=== PATIENT | female | born 1940 | race Caucasian/White ===

== ENCOUNTER 2019-08-23 11:50 | Emergency (ER) | payer MEDICARE, BC, SELFPAY ==
[2019-08-23 11:51] VITALS: BP 165/71; PULSE 75; RESP 15; TEMP 36.9; O2SAT 96; BMI 38.6
[2019-08-23 12:20] VITALS: BP 164/65; PULSE 77; RESP 16; O2SAT 94
--- NOTE | 2019-08-23 13:17 | ED_ITS ---
Entered by Michelle Nicholson, acting as scribe for Piyush Lynn MD, [facility] [place], [place] Aug 23, 2019 11:50 HPI - Weakness General: Chief complaint: Weakness Stated complaint: weakness, hyperglycemia Time Seen by Provider: 08/23/19 12:33 Source: patient Limitations: no limitations History of Present Illness: HPI Narrative: 79 yo Female presents to ED with complaint of weakness. Pt states that she was out of balance. Pt's family states that Monday they noticed a change but Monday and Monday the patient acted like her tongue was really thick. Pt states that her blood pressure has been high. Pt states that she doesn't know what her blood pressure normally is. Pt states that Dr. Zhou put her on Lisinopril but she wasn't taking it because her blood pressure would get low and she would get a headache. Pt states that she is taking the Lisinopril now. Pt states that her knees were weak. Pt states that once she gets up she is out of balance. Pt and family states that her change in her speech is noticible but is much better than yesterday. MD Complaint: generalized weakness and difficulty walking Onset (ago): day(s) (Monday) Duration: improved Associated symptoms: Reports myalgias Review of Systems General: Reports: 10 or more systems reviewed and unremarkable except in HPI and below Const: Reports: fatigue Musc: Reports: muscle weakness Neuro: Reports: weakness in extremities and slurred speech PFSH ED PFSH: Statuses (acute, chronic, etc) shown below reflect problem list status as previously entered and may not be historically accurate Social History Smoking and tobacco status: never smoked Physical Exam Const: COMMON NORMALS: no apparent distress, average body habitus, oriented x3, no limitations, healthy appearing, alert and well nourished HENMT: COMMON NORMALS: normocephalic, head/scalp atraumatic, hearing grossly normal bilaterally, external ears normal, EAC's normal, TM's normal bilaterally, external nose normal, nasal mucous membranes and turbinates normal, moist oral mucous membranes, oropharynx normal, dentition normal and gingiva normal HEAD & SCALP: normocephalic and atraumatic NOSE: external nose normal and nasal mucous membranes and turbinates normal EXTERNAL EAR: Yes external ears normal EXTERNAL AUDITORY CANAL: EAC's normal TYMPANIC MEMBRANE: TM's normal bilaterally Eye: COMMON NORMALS: PERRL, EOMs intact bilaterally, conjunctivae normal, no scleral icterus, no papilledema, normal visual hobbs by confrontation and fundi normal bilaterally CONJUNCTIVA: Yes conjunctivae normal PUPIL: Yes PERRL DIRECT OPHTHALMOSCOPY: Yes no papilledema and Yes fundi normal bilaterally Neck/C-Spine: COMMON NORMALS: full ROM, no lymphadenopathy, supple, no JVD, thyroid normal and no carotid bruits THYROID: thyroid normal Chest: COMMONS NORMALS: inspection of chest normal and palpation of chest normal Resp: COMMON NORMALS: normal respiratory effort, no retractions and no use of accessory muscles AUSCULTATION: crackles (at bases) Laterality: bilateral Cardio: COMMON NORMALS: no JVD, regular rate, regular rhythm, S1 normal heart sound, S2 normal heart sound, no gallops, no clicks, no murmurs, no rub and p eripheral pulses 2+ throughout RATE: regular rate RHYTHM: regular rhythm HEART SOUNDS: S1 normal and S2 normal PERIPHERAL PULSES: pulses 2+ throughout GI: COMMON NORMALS: normal to inspection, nondistended, normoactive bowel sounds, soft to palpation, non-tender, no hepatosplenomegaly, no masses and no bruits PALPATION: Yes soft and Yes no hepatosplenomegaly : COMMON NORMALS: Yes no CVA tenderness BLADDER/KIDNEY EXAM: Yes no CVA tenderness Back/Pelvis: COMMON NORMALS: no CVA tenderness Extremity: COMMON NORMALS: normal to inspection, full ROM, normal capillary refill, no joint enlargement, no clubbing, cyanosis or edema, no calf tenderness and no pedal edema Neuro: COMMON NORMALS: oriented x3 SENSORIUM/ORIENTATION: Yes alert Skin: COMMON NORMALS: no rashes or lesions noted, no wounds, skin turgor normal, no jaundice, no petechiae and no mottling GENERAL SKIN EXAM: no rashes or lesions noted and turgor normal Course Reevaluation(s): Reevaluation #1: Discussed her lab and imaging findings with her. No CT scan findings of an acute CVA. Labs show a possible UTI as well as hypothyroidism. The patient states that she knows about her hypothyroidism however she takes some medications from the [employer] store which are supposed to be natural. I advised that they do not appear to be working and she said she agrees with me as she has been gaining weight and not feeling right. She is willing to commence medication for hypothyroidism. She will also follow-up with her primary care provider for further evaluation and management. Time: 18:34 Vital Signs: Vital signs: Vital Signs Temperature 98.5 F 08/23/19 11:51 Pulse Rate 86 08/23/19 14:06 Respiratory Rate 18 08/23/19 14:06 Blood Pressure 164/65 08/23/19 12:20 Pulse Oximetry 95 08/23/19 14:06 MDM - Weakness MDM Narrative: Medical decision making narrative: Patient who presented with symptoms that she was concerned were secondary to a CVA. NIH score was 0 and evaluation shows a possible UTI and hypothyroidism. She will be started on medications for hypothyroidism and given some antibiotics. Differential Diagnosis: Weakness Differential Diagnosis: Likely acute myocardial infarction, hypothyroidism and dehydration Lab Data: Labs: Lab Results 08/23/19 08/23/19 08/23/19 Range/Units 14:30 14:33 14:33 WBC 7.5 (4.0-10.0) 10^3/ uL RBC 5.07 (4.1-5.3) 10^6/u L Hgb 15.2 (11.5-15.3) g/dL Hct 46.9 (37.0-47.0) % MCV 92.5 (81-99) fL MCH 30.0 (28.0-34.0) pg MCHC 32.4 (30.0-36.0) g/dL RDW 12.9 (12.1-15.1) % Plt Count 286 (130-400) 10^3/c mm MPV 10.8 H (7.4-10.4) fL Neut % (Auto) 69.9 % Lymph % (Auto) 22.6 % Bibb % (Auto) 5.6 % Eos % (Auto) 1.1 % Baso % (Auto) 0.4 % Neut # (Auto) 5.3 (1.8-7.7) 10^3/u L Lymph # (Auto) 1.7 (0.8-4.8) 10^3/u L Bibb # (Auto) 0.4 (0.2-0.9) 10^3/u L Eos # (Auto) 0.1 (0.0-0.8) 10^3/u L Baso # (Auto) 0.0 (0.0-0.1) 10^3/u L Nucleated RBC % (a uto) 0 % Nucleated RBCs # 0.0 /100WBC Sodium 138 (136-145) mmol/L Potassium 4.0 (3.5-5.1) mmol/L Chloride 100 (98-107) mmol/L Carbon Dioxide 23 (22-29) mmol/L Anion Gap 19.0 (5-19) BUN 10 (8-23) mg/dL Creatinine 0.6 (0.5-0.9) mg/dL Glucose 268 H (74-106) mg/dL Calcium 9.8 (8.8-10.2) mg/Dl Total Bilirubin 0.5 (0.15-1.2) mg/dL AST 25 (0-32) U/L ALT 24 (0-33) U/L Alkaline Phosphata se 86 (35-105) IU/L Troponin T Baselin e (0-10) ng/mL Troponin T 120 Min mabel (0-10) ng/mL Delta Troponin T (0-10) ABS# NT-Pro-B Natriuret Pep 93 (0-450) pg/mL Total Protein 7.0 (6.6-8.7) g/dL Albumin 4.8 (3.5-5.2) g/dL Globulin 2.2 (1.3-4.6) g/dL TSH 9.58 H (0.27-4.20) uIU/ mL Urine Color Yellow (Yellow) Urine Appearance Sl hazy (CLEAR) Urine pH 7.0 (5-7) Ur Specific Gravit y 1.005 (1.005-1.030) Urine Protein Neg (Negative) Urine Glucose (UA) 4+ H (Normal) Urine Ketones 1+ H (Negative) Urine Occult Blood Neg (Negative) Urine Nitrate Negative (Negative) Urine Bilirubin Neg (NEGATIVE) Urine Urobilinogen Norm (Negative) mg/dL Ur Leukocyte Laurie ase 2+ H (Negative) Urine RBC 0-4 H (0-2) /hpf Urine WBC 25-40 H (0-5) /hpf Ur Squamous Epith Cells 5-10 H (0-5) Ur Transition Epit h Cell 0-4 /hpf Urine Bacteria 1+ H (NONE) Urine Mucus Trace 08/23/19 08/23/19 Range/Units 14:33 16:38 WBC (4.0-10.0) 10^3/ uL RBC (4.1-5.3) 10^6/u L Hgb (11.5-15.3) g/dL Hct (37.0-47.0) % MCV (81-99) fL MCH (28.0-34.0) pg MCHC (30.0-36.0) g/dL RDW (12.1-15.1) % Plt Count (130-400) 10^3/c mm MPV (7.4-10.4) fL Neut % (Auto) % Lymph % (Auto) % Bibb % (Auto) % Eos % (Auto) % Baso % (Auto) % Neut # (Auto) (1.8-7.7) 10^3/u L Lymph # (Auto) (0.8-4.8) 10^3/u L Bibb # (Auto) (0.2-0.9) 10^3/u L Eos # (Auto) (0.0-0.8) 10^3/u L Baso # (Auto) (0.0-0.1) 10^3/u L Nucleated RBC % (a uto) % Nucleated RBCs # /100WBC Sodium (136-145) mmol/L Potassium (3.5-5.1) mmol/L Chloride (98-107) mmol/L Carbon Dioxide (22-29) mmol/L Anion Gap (5-19) BUN (8-23) mg/dL Creatinine (0.5-0.9) mg/dL Glucose (74-106) mg/dL Calcium (8.8-10.2) mg/Dl Total Bilirubin (0.15-1.2) mg/dL AST (0-32) U/L ALT (0-33) U/L Alkaline Phosphata se (35-105) IU/L Troponin T Baselin e 13 H (0-10) ng/mL Troponin T 120 Min mabel 12.56 H (0-10) ng/mL Delta Troponin T -0.44 L (0-10) ABS# NT-Pro-B Natriuret Pep (0-450) pg/mL Total Protein (6.6-8.7) g/dL Albumin (3.5-5.2) g/dL Globulin (1.3-4.6) g/dL TSH (0.27-4.20) uIU/ mL Urine Color (Yellow) Urine Appearance (CLEAR) Urine pH (5-7) Ur Specific Gravit y (1.005-1.030) Urine Protein (Negative) Urine Glucose (UA) (Normal) Urine Ketones (Negative) Urine Occult Blood (Negative) Urine Nitrate (Negative) Urine Bilirubin (NEGATIVE) Urine Urobilinogen (Negative) mg/dL Ur Leukocyte Laurie ase (Negative) Urine RBC (0-2) /hpf Urine WBC (0-5) /hpf Ur Squamous Epith Cells (0-5) Ur Transition Epit h Cell /hpf Urine Bacteria (NONE) Urine Mucus Imaging Data^: CXR: Radiologist's impression: [place] [address] XRay Report Signed Patient: KamranMikayla#: [id number] : 1940cct:[id number] Age/Sex: 79 / FADM Date: 08/23/19 Loc: ER Attending Dr: Ordering Physician: Piyush Lynn MD, [facility] [place], [place] Date of Service: 08/23/19 Procedure(s): XR chest 2V* 58358 Accession Number(s): [id number] Report Number: [id number] WS: [id number] CHEST 2 VIEWS HISTORY: dizziness COMPARISON: None available. Lungs: Lungs are clear with scattered granulomata. No pneumonia. Normal vasculature. Cardiac size: Normal. Mediastinum/Aorta: Mild atherosclerosis aorta. Bones: Degenerative changes at the AC joints. XR/XR chest 2V* 15879 IMPRESSION: 1. Prior granulomatous disease. 2. No pneumonia. Dictated By:Ana Maria wSanson DO Signed By:Ana Maria Swanson DOSigned Date/Time:08/23/19 1403 DD/ 1402 CT Head: Radiologist's impression: [place] [address] CT Scan Report Signed Patient: AndrewMikayla#: [id number] : 8Acct:[id number] Age/Sex: 79 / FADM Date: 08/23/19 Loc: ER Attending Dr: Ordering Physician: Piyush Lynn MD, [facility] [place], [place] Date of Service: 08/23/19 Procedure(s): CT head wo con* 58571 Accession Number(s): [id number] Report Number: [id number] WS: [id number] CT HEAD NONCONTRAST HISTORY: dizziness, slurred speech TECHNIQUE: Contiguous axial imaging performed through the brain in 2.5 mm imaging. Bone and soft tissue windows. Sagittal and coronal reformats reviewed. All CT scans at [facility] use at least one of these dose optimization techniques: automated exposure control; mA and/or kV adjustment per patient size (includes targeted exams where dose is matched to clinical indication); or iterative reconstruction. DLP: 815.53 mGy.cm COMPARISON: 07/12/2018 No acute intracranial hemorrhage, midline shift or mass effect. Mild atrophy and chronic ischemic disease. There is a lacunar infarct in the RIGHT armond which was not definitely seen on the prior study. Ventricles: Normal size with no hydrocephalus. Scattered atherosclerotic plaque within the intracranial carotid arteries. Paranasal sinuses: As visualized are clear. Mastoid air cells: Well pneumatized. Calvarium and scalp: Skull is intact with no soft tissue edema or swelling. CT/CT head wo con* 77661 IMPRESSION: 1. No acute intracranial hemorrhage or edema. 2. Remote lacunar infarct RIGHT armond and mild chronic microvascular ischemic disease in the subcortical white matter. Dictated By:Ana Maria Swanson DO Signed By:Ana Maria Swanson DOSigned Date/Time:08/23/19 1401 DD/ 1355 EKG Data^: EKG 1: Interpretation: [facility] [address] [place] [address] Electrocardiograph Report Signed Patient: Lidia AndrewR#: [id number] : 8Acct:[id number] Age/Sex: 79 / FADM Date: 08/23/19 Loc: ER Attending Dr: Ordering Physician: Piyush Lynn MD, [facility] [place], [place] Date of Service: 08/23/19 Procedure(s): ECG 12 lead EKG Accession Number(s): [id number] Report Number: [id number] Measurements Intervals [place] Rate: 78 P: 55 IA: 157 QRS: 31 QRSD: 94 T: 61 QT: 382 QTc: 437 SINUS RHYTHM LOW QRS VOLTAGE IN PRECORDIAL LEADS [QRS DEFLECTION < 1.0 mV IN CHEST LEADS] No previous ECG available for comparison Electronically Signed On 08-23-2019 15:08:51 BLOOD SPLATTER ANALYST by Madeline Lugo M.D. [email or web address] Dictated By:Madeline Lugo MD Signed By:Madeline Lugoigned Date/Time:08/23/19 1509 EKG 2: Attestation: I personally reviewed and interpreted this EKG as follows: EKG interpretation date: 08/23/19 EKG interpretation time: 15:50 Interpretation: Normal sinus rhythm. Rate is 74 beats per minutes. No ST changes. Discharge Plan Discharge Patient Disposition: Home, Self-Care Clinical Impression: Acute UTI Hypothyroidism Qualifiers: Hypothyroidism type: acquired Qualified Code(s): E03.9 - Hypothyroidism, uns pecified Condition: Stable Prescriptions: New amoxicillin-pot clavulanate [Augmentin] 875-125 mg tablet 1 tab PO BID Qty: 6 RF: 0 levothyroxine 25 mcg capsule 25 mcg PO DAILY Qty: 30 RF: 0 Continued vitamin E 1,000 unit Capsule 2,000 unit PO DAILY RF: 0 digestive enzymes Capsule 2 cap PO DAILY RF: 0 cod liver oil Capsule 2 cap PO DAILY RF: 0 Vitamin B-1 100 mg Tablet 100 mg PO DAILY RF: 0 selenium 200 mcg Tablet 200 mcg PO DAILY RF: 0 lisinopril 10 mg Tablet 10 mg PO DAILY RF: 0 CoQ-10 30 mg Capsule 30 mg PO DAILY RF: 0 5-HTP 100 mg Capsule 100 mg PO DAILY RF: 0 Vitamin D3 5,000 unit Tablet 5,000 unit PO EVERY OTHER DAY RF: 0 olive leaf extract 250 mg Capsule 500 mg PO DAILY RF: 0 S-Cgncsenq-Jlgzyk 1 tab PO DAILY RF: 0 magnesium, potassium aspartate See Rx Instructions .ROUTE .COMPLEX RF: 0 Discharge Orders: Discharge Order (Routine); Ordered 08/23/19 Ordered By: Piyush Lynn Referrals: Sil Valenzuela APN [Primary Care Provider] - 1-3 days Discharge Diet: Usual diet Discharge Activity: Resume usual activity Activity Restrictions/Additional Instructions: Return for any new or worsening symptoms. Follow-up with your primary care provider within 3 days. Take the medications as prescribed Coding Level of Care Code ED Label Machine Operator for Chg Fwd Exam Problem Focused The documentation recorded by the Bharat ramsey Carmen, accurately reflects the service I personally performed and the decisions made by Leah wren Adegoke I, MD, [facility] [place], [place] Aug 23, 2019 11:50
--- NOTE | 2019-08-23 13:27 | XR_ITS ---
WS: [id number] CHEST 2 VIEWS HISTORY: dizziness COMPARISON: None available. Lungs: Lungs are clear with scattered granulomata. No pneumonia. Normal vasculature. Cardiac size: Normal. Mediastinum/Aorta: Mild atherosclerosis aorta. Bones: Degenerative changes at the AC joints. XR/XR chest 2V* 71658 IMPRESSION: 1. Prior granulomatous disease. 2. No pneumonia.
--- NOTE | 2019-08-23 13:27 | CT_ITS ---
WS: [id number] CT HEAD NONCONTRAST HISTORY: dizziness, slurred speech TECHNIQUE: Contiguous axial imaging performed through the brain in 2.5 mm imaging. Bone and soft tiss ue windows. Sagittal and coronal reformats reviewed. All CT scans at [facility] use at le ast one of these dose optimization techniques: automated exposure control; mA and/or kV adjustment pe r patient size (includes targeted exams where dose is matched to clinical indication); or iterative r econstruction. DLP: 815.53 mGy.cm COMPARISON: 07/12/2018 No acute intracranial hemorrhage, midline shift or mass effect. Mild atrophy and chronic ischemic disease. There is a lacunar infarct in the RIGHT armond which was not definitely seen on the prior study. Ventricles: Normal size with no hydrocephalus. Scattered atherosclerotic plaque within the intracranial carotid arteries. Paranasal sinuses: As visualized are clear. Mastoid air cells: Well pneumatized. Calvarium and scalp: Skull is intact with no soft tissue edema or swelling. CT/CT head wo con* 18850 IMPRESSION: 1. No acute intracranial hemorrhage or edema. 2. Remote lacunar infarct RIGHT armond and mild chronic microvascular ischemic d isease in the subcortical white matter.
[2019-08-23 14:06] VITALS: PULSE 86; RESP 18; O2SAT 95
[2019-08-23 14:42] LABS: Basophils % 0.4 %; Eosinophils # 0.1 10^3/uL (0.0-0.8); Eosinophils % 1.1 %; Hematocrit 46.9 % (37.0-47.0); Hemoglobin 15.2 g/dL (11.5-15.3); Lymphocytes # 1.7 10^3/uL (0.8-4.8); Lymphocytes % 22.6 %; Mean Corpuscular HGB Conc 32.4 g/dL (30.0-36.0); Mean Corpuscular Volume 92.5 fL (81-99); Mean Platelet Volume 10.8 fL (7.4-10.4); Monocytes # 0.4 10^3/uL (0.2-0.9); Monocytes % 5.6 %; Neutrophils # 5.3 10^3/uL (1.8-7.7); Neutrophils % 69.9 %; Nucleated Red Blood Cells % 0 %; Platelet Count 286 10^3/cmm (130-400); Red Blood Count 5.07 10^6/uL (4.1-5.3); Red Cell Distribution Width 12.9 % (12.1-15.1); White Blood Count 7.5 10^3/uL (4.0-10.0)
[2019-08-23 15:06] LABS: Troponin(5th) Baseline 13 ng/mL (0-10)
[2019-08-23 15:12] LABS: Alanine Aminotransferase 24 U/L (0-33); Albumin Level 4.8 g/dL (3.5-5.2); Alkaline Phosphatase 86 IU/L (35-105); Aspartate Amino Transferase 25 U/L (0-32); Blood Urea Nitrogen 10 mg/dL (8-23); Calcium 9.8 mg/Dl (8.8-10.2); Carbon Dioxide 23 mmol/L (22-29); Chloride 100 mmol/L (98-107); Globulin 2.2 g/dL (1.3-4.6); Glucose 268 mg/dL (74-106); NT Pro B Type Natriuretic Pept 93 pg/mL (0-450); Sodium 138 mmol/L (136-145); Thyroid Stimulating Hormone 9.58 uIU/mL (0.27-4.20); Total Bilirubin 0.5 mg/dL (0.15-1.2)
[2019-08-23 15:27] LABS: Specific Gravity, Urine 1.005 (1.005-1.030); Urine Appearance SL Hazy (CLEAR); Urine Color Yellow (Yellow)
[2019-08-23 15:28] LABS: Bilirubin Urine Neg (NEGATIVE); Blood Urine Neg (Negative); Glucose Urine UA 4+ (Normal); Ketones Urine 1+ (Negative); Leukocyte Esterase Urine 2+ (Negative); Nitrate Urine Negative (Negative); Protein Urine Neg (Negative); Urobilinogen Urine Norm (Negative)
[2019-08-23 15:33] LABS: Bacteria Urine 1+; RBC Urine 0-4 /hpf (0-2); Transitional Epi Cells Urine 0-4 /hpf; WBC Urine 25-40 /hpf (0-5)
[2019-08-23 15:34] LABS: Add Urine Culture? Yes; Mucus Urine TRACE
--- NOTE | 2019-08-23 15:37 | ECG_ITS ---
Measurements Intervals [place] Rate: 74 P: 49 NH: 157 QRS: 25 QRSD: 98 T: 47 QT: 396 QTc: 440 SINUS RHYTHM LOW QRS VOLTAGE IN PRECORDIAL LEADS [QRS DEFLECTION < 1.0 mV IN CHEST LEADS] Compared to ECG 08/23/2019 14:16:26 No significant changes Electronically Signed On 08-24-2019 15:03:07 LANGUAGE AND LITERATURE DIVISION CHAIR by Shae Munoz M.D. [id number]
[2019-08-23 17:04] LABS: Troponin 5 2HR 12.56 ng/mL (0-10)
[2019-08-23 17:21] LABS: Troponin 5 2HR Delta -0.44 ABS# (0-10)
--- NOTE | 2019-08-23 19:37 | ECG_ITS ---
Measurements Intervals [place] Rate: 78 P: 55 SD: 157 QRS: 31 QRSD: 94 T: 61 QT: 382 QTc: 437 SINUS RHYTHM LOW QRS VOLTAGE IN PRECORDIAL LEADS [QRS DEFLECTION < 1.0 mV IN CHEST LEADS] No previous ECG available for comparison Electronically Signed On 08-23-2019 15:08:51 GUM WORKER by Madeline Lugo M.D. [id number]
[2019-08-23 20:06] VITALS: BP 131/61; PULSE 77; RESP 16; O2SAT 94
== END 2019-08-23 20:08 | disposition home or self-care (01) ==
PROVIDERS: Emergency Provider Family Medicine; PCP Nurse Practitioner Family
DX: N39.0 Urinary tract infection, site not specified (principal); E03.9 Hypothyroidism, unspecified; I70.0 Atherosclerosis of aorta
CPT/HCPCS: 36415; 70450; 71046; 80053; 81001; 83880; 84443; 84484; 85025; 87086; 93005; 99282

== ENCOUNTER → 2019-08-27 16:24 | Outpatient (BNVA) | payer MEDICARE, BC, SELFPAY | PROVIDERS: PCP Nurse Practitioner Family; Visit Provider Nurse Practitioner Family | DX: N39.0 Urinary tract infection, site not specified (principal); E11.9 Type 2 diabetes mellitus without complications; E03.9 Hypothyroidism, unspecified; B37.3 Candidiasis of vulva and vagina; H61.20 Impacted cerumen, unspecified ear; F41.9 Anxiety disorder, unspecified | CPT/HCPCS: 81003; 83036 ==

== ENCOUNTER 2019-09-10 14:25 | Outpatient (CLI) | payer MEDICARE, BC, SELFPAY ==
--- NOTE | 2019-09-10 15:00 | US_ITS ---
WS: [id number] ULTRASOUND THYROID TECHNIQUE: Ultrasound of the thyroid. CLINICAL INFORMATION: Hypothyroidism COMPARISON: None. FINDINGS: Thyroid: Right and left thyroid lobes are normal in size and echotexture. Right thyroid lobe: 4.6 cm x 1.7 cm x 1.7 cm 2 subcentimeter right thyroid nodules largest measuring 7.5 x 3.2 x 5.7 mm. Smaller nodule measuring 3.5 x 1.9 x 2.5 mm Left thyroid lobe: 3.9 cm x 1.2 cm x 1.2 cm. Isthmus: 0.5 mm. Cervical lymphadenopathy: None. US/US thyroid 99139 IMPRESSION: 1. 2 subcentimeter right thyroid nodules the largest measuring 7.5 x 3.2 x 5.7 mm. Recommend 12-18 month follow-up. 2. No left-sided nodules.
== END 2019-09-10 14:26 | disposition home or self-care (01) ==
LOC: RAD 14:34
PROVIDERS: PCP Nurse Practitioner Family; Visit Provider Nurse Practitioner Family
DX: E03.9 Hypothyroidism, unspecified (principal); E04.2 Nontoxic multinodular goiter
CPT/HCPCS: 76536

== ENCOUNTER → 2019-11-14 13:11 | Outpatient (BNVA) | payer MEDICARE, BC, SELFPAY | PROVIDERS: PCP Nurse Practitioner Family; Visit Provider Family Medicine | DX: E11.9 Type 2 diabetes mellitus without complications (principal); E03.9 Hypothyroidism, unspecified; F41.9 Anxiety disorder, unspecified; F32.9 Major depressive disorder, single episode, unspecified | CPT/HCPCS: 80053; 80061; 83036; 83721; 84443; 85025 ==

== ENCOUNTER → 2020-02-20 10:59 | Outpatient (BNVA) | payer MEDICARE, BC, SELFPAY | PROVIDERS: PCP Nurse Practitioner Family; Visit Provider Family Medicine | DX: E78.5 Hyperlipidemia, unspecified (principal); E11.9 Type 2 diabetes mellitus without complications; E03.9 Hypothyroidism, unspecified; N39.0 Urinary tract infection, site not specified; F41.8 Other specified anxiety disorders; I10 Essential (primary) hypertension; F32.9 Major depressive disorder, single episode, unspecified | CPT/HCPCS: 80053; 80061; 83036; 84443 ==

== ENCOUNTER → 2020-03-30 13:54 | Outpatient (BNVA) | payer MEDICARE, BC, SELFPAY | PROVIDERS: PCP Nurse Practitioner Family; Visit Provider Internal Medicine | DX: E03.9 Hypothyroidism, unspecified (principal); E04.1 Nontoxic single thyroid nodule; E66.9 Obesity, unspecified; F41.8 Other specified anxiety disorders; R54 Age-related physical debility | CPT/HCPCS: 99203 ==

== ENCOUNTER → 2021-03-25 17:58 | Outpatient (BNVA) | payer MEDICARE, BC, SELFPAY | PROVIDERS: PCP Family Medicine; Visit Provider Family Medicine | DX: E78.5 Hyperlipidemia, unspecified (principal); E03.8 Other specified hypothyroidism; F41.8 Other specified anxiety disorders; Z68.33 Body mass index [BMI] 33.0-33.9, adult; Z71.89 Other specified counseling | CPT/HCPCS: 80053; 80061; 83721; 84443; 85025 ==

== ENCOUNTER → 2021-08-31 16:01 | Outpatient (BNVA) | payer MEDICARE, BC, SELFPAY | PROVIDERS: PCP Family Medicine; Visit Provider Nurse Practitioner Family | DX: M25.552 Pain in left hip (principal); E03.8 Other specified hypothyroidism; E78.5 Hyperlipidemia, unspecified; E11.9 Type 2 diabetes mellitus without complications; R29.6 Repeated falls; I10 Essential (primary) hypertension | CPT/HCPCS: 73502; 80053; 80061; 82306; 83036; 83721; 84443; 85025 ==

== ENCOUNTER 2021-09-01 15:35 | Outpatient (CLI) | payer MEDICARE, BC, SELFPAY ==
--- NOTE | 2021-09-01 16:00 | CT_ITS ---
WS: [id number] NONCONTRAST CT LEFT HIP TECHNIQUE: Noncontrast CT left hip with coronal and sagittal reformatted images. CLINICAL INFORMATION: M25.552 - Pain in left hip COMPARISON: Radiograph September 01, 2021 DLP: 2042.[address] scans at [facility] use at least one of these dose optimization techniques: automated e xposure control; mA and/or kV adjustment per patient size (includes targeted exams where dose is matc hed to clinical indication); or iterative reconstruction. FINDINGS: Comminuted subcapital fracture involving the left femoral neck. Subcapital left hip fracture is sligh tly comminuted with fracture fragments. Mild impaction with mild varus angulation. Fracture extends i nto the proximal femoral neck. Normal acetabulum. Normal lesser trochanter. Proximal femoral shaft is normal. Moderate degenerative arthritis left hip with joint space narrowing. Normal pubic rami. Tiny left hip effusion. Sigmoid diverticulosis. CT/CT hip LT wo con* 60307 IMPRESSION: 1. Comminuted left subcapital hip fracture with impaction and mild varus angul ation. Comminuted fracture extends slightly into the proximal femoral neck. 2. Normal acetabulum and pubic rami. Notified PANCHITO Odom at 09/01/2021 5:11 PM.
== END 2021-09-01 15:36 | disposition home or self-care (01) ==
LOC: RAD 15:40
PROVIDERS: PCP Family Medicine; Visit Provider Nurse Practitioner Family
DX: S72.012A Unspecified intracapsular fracture of left femur, initial encounter for closed fracture (principal); X58.XXXA Exposure to other specified factors, initial encounter
CPT/HCPCS: 73700

== ENCOUNTER 2021-09-02 10:56 | Inpatient (IN) | payer MEDICARE, BC, SELFPAY ==
[2021-09-02 11:40] VITALS: BP 134/64; PULSE 76; RESP 18; TEMP 36.8; O2SAT 96; BMI 36.6
--- NOTE | 2021-09-02 11:57 | ECG_ITS ---
[facility] Test Date: 2021-09-02 Pat Name: Cecelia Andrew Department: Room: Gender: Female Stereotyper Helper: : 1940 Requested By: Ayo Manley Order Number: [id number] Reading MD: JENNIFER FELIX Measurements Intervals [place] Rate: 67 P: 49 SD: 156 QRS: 3 QRSD: 92 T: 55 QT: 387 QTc: 411 Interpretive Statements SINUS RHYTHM Compared to ECG 08/23/2019 15:50:28 No significant changes Electronically Signed On 09-03-2021 18:16:44 SKIRT MAKER by JENNIFER FELIX [id number]
--- NOTE | 2021-09-02 12:10 | ED_ITS ---
HPI - General Adult General: Chief complaint: Extremity Injury, Lower Stated complaint: BROKEN HIP SENT BY PCP Time Seen by Provider: 09/02/21 11:52 History of Present Illness: HPI narrative: Patient is a 81-year-old female who presents emergency room because Dr. Garay for left hip fracture. Patient fell 2 weeks ago and was supposed to undergo outpatient elective surgery today. However Patient had breakfast this morning and is unable to take surgery. Dr. Sheth sent patient to the emergency room so that she can be admitted to the hospital and have surgery tomorrow morning Onset:2 weeks ago Duration:2 weeks Location:home Severity:moderate/severe Associated symptoms: Deny chest pain, dyspnea, nausea, rash, palpitations or vomiting Review of Systems Const: Denies: fever(s) or chills Eyes: Denies: change in vision ENMT: Denies: mouth pain Card: Denies: chest pain or palpitations Resp: Denies: dyspnea or non-productive cough GI: Denies: abdominal pain, nausea, vomiting or diarrhea : Denies: dysuria Musc: Reports: extremity pain (L hip pain) Skin/Breast: Denies: rash or new lesions Neuro: Denies: weakness in extremities Psych: Reports: other (Normal mood) Jose Luis/Lymph: Denies: easy bruising PFSH ED PFSH: Medical History Claustrophobia Depression with anxiety Diabetes Diabetes mellitus without complication DJD (degenerative joint disease) Dyslipidemia Essential hypertension Hypothyroid Obesity Surgical History History of cholecystectomy History of lumpectomy Social History Alcohol intake: never Lives independently: Yes Household members: none Marital status: / service: No Current occupational status: retired History of recent travel: No Current gender identity: Female Special iza needs: No Physical Exam Const: COMMON NORMALS: alert HENMT: COMMON NORMALS: atraumatic HEAD & SCALP: atraumatic MOUTH: moist mucous membranes not abnormal Eye: COMMON NORMALS: EOMs intact bilaterally and conjunctivae normal CONJUNCTIVA: Yes conjunctivae normal Neck/C-Spine: COMMON NORMALS: full ROM and supple Resp: COMMON NORMALS: normal respiratory effort and clear to auscultation bilaterally AUSCULTATION: clear to auscultation bilaterally Cardio: COMMON NORMALS: regular rate RATE: regular rate GI: COMMON NORMALS: Soft to palpation and non-tender PALPATION: Yes Soft to palpation Extremity: COMMON NORMALS: negative for full ROM (Decreased ROM of the L hip due to pain) Neuro: SENSORIUM/ORIENTATION: Yes alert MOTOR EXAM: No Abnormal motor strength present and Other motor observations present (no focal motor deficits) Psych: COMMON NORMALS: speech normal SPEECH: Yes normal speech MOOD & AFFECT: Yes euthymic mood Course Vital Signs: Vital signs: Vital Signs Temperature 98.3 F 09/02/21 11:40 Pulse Rate 76 09/02/21 11:40 Respiratory Rate 18 09/02/21 11:40 Blood Pressure 134/64 09/02/21 11:40 Pulse Oximetry 96 09/02/21 11:40 MDM - General Adult MDM Narrative: Medical decision making narrative: Preop labs order. Patient will be admitted to hospital for surgery tomorrow. Dr. Garay aware and following patient. Disposition: admission Discharge Plan Discharge Patient Disposition: Admitted As Inpatient Clinical Impression: Closed hip fracture, Acute hip pain Condition: Stable Coding Level of Care Code ED Direct Casting Operator for Bautista Ramirez
--- NOTE | 2021-09-02 12:13 | PM.HP ---
Providers/Chief Complaint Primary Care Provider: Karen Hughes MD Chief Complaint: BROKEN HIP SENT BY PCP History of Present Illness Cecelia Andrew is a 81 year old female who lives alone, her 3 years ago, currently grandson is living with her, she twisted her ankle on 08/18 and fell, she was diagnosed with left femoral head fracture. She was scheduled for surgery today however she ate her surgery has been postponed to 09/03. Hospitalist service requested to admit her. Patient is stating that she does not take insulin for her diabetes however hemoglobin A1c is around 11, she denies any history of coronary artery disease, CHF, HI, stroke. For her hyperglycemia I will start her on normal saline We will give her 10 units of Lantus right now and keep her on sliding scale Hold lisinopril No preoperative cardiac work-up needed At the time of my evaluation she was saturating well on room air, awake and alert, hemodynamically stable, she does seem to have memory impairment does not know much detail about her fall in July Review of Systems Eyes: Denies: change in vision ENMT: Denies: throat pain Card: Denies: chest pain Resp: Denies: dyspnea GI: Denies: abdominal pain : Denies: flank pain Musc: Reports: back pain and joint pain; Denies: neck pain Skin/Breast: Denies: rash Neuro: Reports: difficulty walking; Denies: headache(s) Psych: Denies: anxiety Endo: Denies: polyuria Jose Luis/Lymph: Denies: easy bruising All/Imm: Denies: urticaria Medications/Allergies Home Medications Medication Instructions Recorded Confirmed Last Taken Type 5-HTP 100 mg PO DAILY 08/23/19 09/02/21 Unknown History CoQ-10 30 mg PO DAILY 08/23/19 09/02/21 Unknown History Vitamin B-1 100 mg PO DAILY 08/23/19 09/02/21 Unknown History Vitamin D3 5,000 unit PO EVERY OTHER DAY 08/23/19 09/02/21 Unknown History cod liver oil 2 cap PO DAILY 08/23/19 09/02/21 Unknown History digestive enzymes 2 cap PO DAILY 08/23/19 09/02/21 Unknown History olive leaf extract 500 mg PO DAILY 08/23/19 09/02/21 Unknown History vitamin E 2,000 unit PO DAILY 08/23/19 09/02/21 Unknown History sertraline 100 mg tablet 100 mg PO DAILY #30 tab 03/25/21 09/02/21 Unknown Rx tramadol 50 mg tablet 50 mg PO BID PRN #20 tab 08/31/21 09/02/21 Unknown Rx Calcium Magnesium Potassium Ta 1 tab PO DAILY 09/02/21 09/02/21 Unknown History ibuprofen 800 mg PO Q6H PRN 09/02/21 09/02/21 Unknown History levothyroxine [Euthyrox] 25 mcg PO QAM 09/02/21 09/02/21 Unknown History lisinopril 10 mg PO DAILY 09/02/21 09/02/21 Unknown History multivitamin 1 tab PO DAILY 09/02/21 09/02/21 Unknown History Allergies Allergy/AdvReac Type Severity Reaction Status Date / Time Sulfa (Sulfonamide Allergy Unknown Verified 09/02/21 10:12 Antibiotics) fluoxetine AdvReac ADR-Nightma Verified 09/02/21 10:12 re PFSH Acute PFSH: Medical History (Updated 09/02/21 @ 12:33 by Madeline Trammell MD) Claustrophobia Depression with anxiety Diabetes Diabetes mellitus without complication DJD (degenerative joint disease) Dyslipidemia Essential hypertension Hypothyroid Obesity Surgical History History of cholecystectomy History of lumpectomy Social History Alcohol intake: never Lives independently: Yes Household members: none Marital status: / service: No Current occupational status: retired History of recent travel: No Current gender identity: Female Special iza needs: No Vitals/I&O/Wt Last Vital Signs Temp 98.3 F 09/02/21 11:40 Pulse 76 09/02/21 11:40 Resp 18 09/02/21 11:40 BP 134/64 09/02/21 11:40 Pulse Ox 96 09/02/21 11:40 Weight last 48 hrs Weight 90.718 kg Physical Exam Narrative: EXAM NARRATIVE: Pleasant elderly female Appears stated age No vascular compromise of legs S1, S2 Hemodynamically stable Grade 2 systolic murmur appreciated right second intercostal space No active signs of heart failure EOMI, PERRLA Abdomen soft Bowel sound present Appropriate mood and affect Memory impairment noted A&P Assessment and plan (1) Closed hip fracture: Status: Acute (2) Hip fracture, left: Status: Acute (3) Need for home health care: Status: Acute (4) Hypothyroid: Status: Acute Qualifiers: Hypothyroidism type: other Qualified Code(s): E03.8 - Other specified hypothyroidism (5) Type 2 diabetes mellitus: Status: Acute Additional A&P Information Left subcapital hip fracture Plan for intervention on 09/03 N.p.o. after midnight No preoperative cardiac work-up indicated, she does have grade 2 systolic murmur right second intercostal space, will get echo today however if it gets delayed I do not see any indication to postpone surgery tomorrow She does have poorly controlled type 2 diabetes hemoglobin A1c is 11 she will need insulin at the time of discharge for now I will keep her on normal saline given her first Lantus 10 units now For her hypertension we will hold lisinopril in anticipation of surgery tomorrow DVT prophylaxis: SCDs Consistent carb diet for today and n.p.o. after midnight Patient is full code She does seem to have mild cognitive impairment, lives alone, grandson is helping her out, She will need diabetic teaching which will be a challenge considering her mild cognitive impairment, would recommend involving family members Attestations Medical Necessity Statement*: More than 2 midnights anticipated Time Spent in Patient Care: Greater than 35 minutes Coding Level of Care Code Acute Staff Nurse Anesthetist for g Fwd Diagnoses Closed hip fracture S72.009A Hip fracture, left S72.002A Need for home health care Z74.2 Hypothyroid E03.8 Hypothyroidism type: other Type 2 diabetes mellitus E11.9
--- NOTE | 2021-09-02 12:28 | PC.PHAR ---
PT STATES SHE TAKES CARE OF HER OWN MEDICATIONS-PT STATES SHE TAKES THE MEDICATIONS ENTERED
--- NOTE | 2021-09-02 12:37 | USCV_ITS ---
KamranCecelia Age: 81 Gender: F : 1940 Exam Date: 09/02/2021 12:46 Ordering Phys: Madeline Trammell MD Technologist: Exam Location: [facility] Indication: pre op BP: 148 / 49 HR: 71 Rhythm: Sinus Technical Quality: Adequate MEASUREMENTS (Male / Female) Normal Values 2D ECHO LV Diastolic Diameter PLAX 4.5 cm 4.2 - 5.9 / 3.9 - 5.3 cm LV Systolic Diameter PLAX 2.5 cm IVS Diastolic Thickness 1.1 cm 0.6 - 1.0 / 0.6 - 0.9 cm IVS Systolic Thickness 1.4 cm LVPW Diastolic Thickness 1.2 cm 0.6 - 1.0 / 0.6 - 0.9 cm LVPW Systolic Thickness 1.3 cm LVOT Diameter 2.0 cm LV Ejection Fraction 2D Teich 75.7 % LV Ejection Fraction MOD 2C 57.5 % LV Ejection Fraction 2C AL 58.3 % LA Diameter 3.9 cm LA Width 4.1 cm LA Height 5.0 cm RA Width 3.7 cm RA Height 4.1 cm Aorta at Sinotubular Diameter 3.0 cm M-MODE Aortic Annulus Diameter 3.2 cm LA Ao Ratio MM 1.2 MV E Point Septal Separation 0.5 cm DOPPLER AV Peak Velocity 190.0 cm/s LVOT Peak Velocity 102.0 cm/s AV Area Cont Eq vti 1.8 cm squared AV Area Cont Eq pk 1.7 cm squared MV Area PHT 5.0 cm squared Mitral E to A Ratio 0.8 MV E' Velocity 48.5 cm/s Mitral E to MV E' Ratio 9.0 Mitral E to LV E' Lateral Ratio 8.4 Mitral E to LV E' Septal Ratio 9.8 TR Peak Velocity 150.0 cm/s TR Peak Gradient 9.0 mmHg TV Peak E Velocity 61.0 cm/s Right Atrial Pressure 3.0 mmHg Pulmonary Artery Systolic Pressu 12.0 mmHg FINDINGS Left Ventricle Normal left ventricular cavity size. Normal left ventricular systolic function. No regional wall motion abnormalities. Left ventricular ejection fraction is estimated at 60 %. Right Ventricle The right ventricle is normal in size and function. Right Atrium The right atrium is normal in size. Left Atrium The left atrium is normal in size. Mitral Valve Moderately thickened mitral valve. No mitral valve stenosis. Moderate mitral annular calcification. Mild mitral valve regurgitation. Aortic Valve Severe aortic valve calcification. Mild aortic valve stenosis, mean gradient 8.1 mmHg, ARIS 1.8 cm squared. Trace aortic valve regurgitation. Tricuspid Valve Structurally normal tricuspid valve without significant stenosis or regurgitation. Pulmonary artery systolic pressure is normal. Pulmonic Valve Structurally normal pulmonic valve without significant stenosis. There is no pulmonic regurgitation. Pericardium Normal pericardium without effusion. Aorta Normal ascending aorta dimension. CONCLUSIONS 1-Normal left ventricular cavity size. Normal left ventricular systolic function. No regional wall motion abnormalities. Left ventricular ejection fraction is estimated at 60 %. 2-Severe aortic valve calcification. Mild aortic valve stenosis, mean gradient 8.1 mmHg, ARIS 1.8 cm squared. Trace aortic valve regurgitation. 3-Moderately thickened mitral valve. No mitral valve stenosis. Moderate mitral annular calcification. Mild mitral valve regurgitation. 4-Structurally normal tricuspid valve without significant stenosis or regurgitation. Pulmonary artery systolic pressure is normal. 5-There is no pericardial effusion. 6-Pulmonary artery systolic pressure is within normal limits. 7-There are no prior echocardiogram studies to compare. Madeline Lugo MD (Electronically Signed) Final Date: 02 September 2021 21:07 S
[2021-09-02] MEDS: HYDROmorphone 1 mg/mL INJ 1 mL 0.5 MG IVP (13:20)
[2021-09-02 13:21] LABS: Specific Gravity, Urine 1.025 (1.005-1.030); Urine Appearance Hazy (CLEAR); Urine Color Yellow (Yellow); pH Urine 5 (5-7)
[2021-09-02 13:22] LABS: Add Urine Culture? No; Add Urine Microscopic? YES; Bacteria Urine TRACE /hpf; Bilirubin Urine Neg (Negative); Blood Urine 3+ (Negative); Glucose Urine UA 2+ (Normal); Ketones Urine Negative (Negative); Leukocyte Esterase Urine Trace (Negative); Nitrate Urine Negative (Negative); Protein Urine Neg (Negative); RBC Urine 0-4 /hpf (0-2); Urobilinogen Urine Norm (Negative)
[2021-09-02 13:50] VITALS: BP 132/58; PULSE 70; RESP 16; O2SAT 93
[2021-09-02] MEDS: insulin glargine 100 units/1 mL 10 UNIT SUBCUT (14:02)
[2021-09-02 14:07] LABS: Basophils # 0.1 10^3/uL (0.0-0.1); Basophils % 0.7 %; Eosinophils # 0.2 10^3/uL (0.0-0.8); Eosinophils % 2.2 %; Hematocrit 39.2 % (37.0-47.0); Hemoglobin 12.9 g/dL (11.5-15.3); Lymphocytes # 1.3 10^3/uL (0.8-4.8); Lymphocytes % 15.2 %; Mean Corpuscular HGB Conc 32.9 g/dL (30.0-36.0); Mean Corpuscular Hemoglobin 29.4 pg (28.0-34.0); Mean Corpuscular Volume 89.3 fl (81-99); Mean Platelet Volume 12.2 fL (7.4-10.4); Monocytes # 0.6 10^3/uL (0.2-0.9); Monocytes % 6.5 %; Neutrophils # 6.36 10^3/uL (1.8-7.7); Neutrophils % 74.8 %; Nucleated Red Blood Cells % 0 %; Platelet Count 221 10^3/cmm (130-400); Red Blood Count 4.39 10^6/uL (4.1-5.3); Red Cell Distribution Width 13.1 % (12.1-15.1); White Blood Count 8.5 10^3/uL (4.0-10.0)
[2021-09-02 14:55] VITALS: BP 135/69; PULSE 73; RESP 16; O2SAT 94
[2021-09-02 14:57] LABS: Anion Gap 16.6 (5-19); Blood Urea Nitrogen 19 mg/dL (8-23); Calcium 8.6 mg/dL (8.5-10.5); Carbon Dioxide 24 mmol/L (22-29); Chloride 101 mmol/L (98-107); Creatinine Clr Calc Pharmacy 55.8077; Glucose 241 mg/dL (65-115); Osmolality Calculated 294 mOsm/kg (285-295); Potassium 4.6 mmol/L (3.5-5.1); Sodium 137 mmol/L (136-145)
[2021-09-02 15:35] LABS: INR 1.03 (0.8-1.2); Partial Thromboplastin Time 28.1 SECONDS (23.9-36.7)
[2021-09-02] MEDS: sodium chloride 0.9% 1,000 ML 75 ML IV (17:01)
[2021-09-02] MEDS: ergocalciferol (vitamin D2) 50,000 Unit Capsule 50000 UNIT PO (17:27)
[2021-09-02 17:37] LABS: Glucose Point of Care 264 mg/dL (70-110)
[2021-09-02] MEDS: insulin lispro 100 unit/1 mL SUBCUT (17:37)
--- NOTE | 2021-09-02 18:56 | PM.CONSULT ---
Providers/Reason For Consult Consulting Physician/Specialty*: Dr. Polly Garay - Orthopedics Reason for Consult*: Left subcapital hip fracture Requesting Physician: Madeline Trammell MD and Karen Hughes MD, Attending Physician: Madeline Trammell MD Primary Care Provider: Karen Hughes MD History of Present Illness History of Present Illness Cecelia Andrew is a 81 year old female who was seen today in my office with a diagnosis of left subcapital hip fracture. We received a call this morning from the primary care office she came to the clinic with her son. He states he can take care of the patient in the home once she is independent and safe. He lives in [place], and he came here to provide her care. Patient has CT and X ray results in system for review. Patient is accompanied with son who states on 08/18/21 patient was reaching down for an object when she twisted her body and fell landing on the left hip. She refused to go to the hospital to be treated. Subsequently, however, function continued to diminished significantly, and the patient presents today for definitive care. Review of Systems Const: Denies: fever(s) or chills Eyes: Denies: change in vision ENMT: Denies: throat pain or mouth pain Card: Denies: chest pain or palpitations Resp: Denies: dyspnea or non-productive cough GI: Denies: abdominal pain, nausea, vomiting or diarrhea : Denies: flank pain or dysuria Musc: Reports: back pain, extremity pain (L hip pain) and joint pain; Denies: neck pain Skin/Breast: Denies: rash or new lesions Neuro: Reports: difficulty walking; Denies: headache(s) or weakness in extremities Psych: Reports: other (Normal mood); Denies: anxiety Endo: Denies: polyuria Jose Luis/Lymph: Denies: easy bruising All/Imm: Denies: urticaria Medications/Allergies Home Medications Medication Instructions Recorded Confirmed Last Taken Type 5-hydroxytryptophan (5-HTP) [5-HTP] 100 mg PO BEDTIME 08/23/19 09/02/21 Unknown History cholecalciferol (vitamin D3) 5,000 unit PO EVERY OTHER DAY 08/23/19 09/02/21 Unknown History [Vitamin D3] cod liver oil 2 cap PO DAILY 08/23/19 09/02/21 Unknown History coenzyme Q10 [CoQ-10] 30 mg PO DAILY 08/23/19 09/02/21 Unknown History digestive enzymes 1 cap PO QAM 08/23/19 09/02/21 Unknown History olive leaf extract 500 mg PO DAILY 08/23/19 09/02/21 Unknown History thiamine HCl (vitamin B1) [Vitamin 100 mg PO DAILY 08/23/19 09/02/21 Unknown History B-1] vitamin E 2,000 unit PO DAILY 08/23/19 09/02/21 Unknown History sertraline 100 mg tablet 100 mg PO DAILY #30 tab 03/25/21 09/02/21 Unknown Rx tramadol 50 mg tablet 50 mg PO BID PRN #20 tab 08/31/21 09/02/21 09/02/21 08:00 Rx Calcium Magnesium Potassium Ta 1 tab PO DAILY 09/02/21 09/02/21 Unknown History ibuprofen 800 mg PO Q6H PRN 09/02/21 09/02/21 Unknown History levothyroxine [Euthyrox] 25 mcg PO QAM 09/02/21 09/02/21 Unknown History lisinopril 10 mg PO DAILY 09/02/21 09/02/21 Unknown History multivitamin 1 tab PO DAILY 09/02/21 09/02/21 Unknown History Allergies Allergy/AdvReac Type Severity Reaction Status Date / Time Sulfa (Sulfonamide Allergy Unknown Verified 09/02/21 10:12 Antibiotics) fluoxetine AdvReac ADR-Nightma Verified 09/02/21 10:12 re Current Medications Generic Name Dose Route Start Last Admin Trade Name Freq PRN Reason Stop Dose Admin Sodium Chloride 1,000 mls @ 75 mls/hr 09/02/21 14:51 09/02/21 17:01 Sodium Chloride 0.9% IV 75 mls/hr .[id number] DOMITILA Administration Insulin Human Lispro 0 unit 09/02/21 18:00 09/02/21 17:37 Insulin Lispro 100 Unit/1 Ml SUBCUT 10 unit TIDWM DOMITILA Administration Protocol PFSH Acute PFSH: Medical History Claustrophobia Depression with anxiety Diabetes Diabetes mellitus without complication DJD (degenerative joint disease) Dyslipidemia Essential hypertension Hypothyroid Obesity Surgical History History of cholecystectomy History of lumpectomy Social History Alcohol intake: never Lives independently: Yes Household members: none Marital status: / service: No Current occupational status: retired History of recent travel: No Current gender identity: Female Special iza needs: No Dietary Habits: Current diet type/program: regular Caffeine: Yes Vitals/I&O/Wt Last Vital Signs Temp 98.3 F 09/02/21 11:40 Pulse 73 09/02/21 14:55 Resp 16 09/02/21 14:55 BP 135/69 09/02/21 14:55 Pulse Ox 94 09/02/21 14:55 Weight last 48 hrs Weight 200 lb Physical Exam Narrative: EXAM NARRATIVE: Patient presents with her son. She is in a wheelchair. Const: COMMON NORMALS: no acute distress, average body habitus, patient oriented x3 and alert GENERAL APPEARANCE: cooperative and comfortable ORIENTATION/CONSCIOUSNESS: Yes awake HENMT: COMMON NORMALS: normocephalic and atraumatic HEAD & SCALP: normocephalic and atraumatic Eye: GENERAL EYE: appearance normal, both eyes and all related structures Chest: COMMONS NORMALS: normal inspection of the chest Resp: COMMON NORMALS: normal respiratory effort EFFORT & INSPECTION: Yes able to speak in complete sentences and Yes symmetric chest movement Extremity: LEFT LOWER EXTREMITY: Yes hip joint (Pain to any range of motion) Left hip: Yes palpation (Tender to palpation), Yes ROM (Not evaluated secondary to fracture) and Yes neurovascular exam (Intact distally) Neuro: COMMON NORMALS: patient oriented x3 SENSORIUM/ORIENTATION: Yes alert Psych: COMMON NORMALS: mental status grossly normal APPEARANCE: Yes grossly normal ATTITUDE: Yes calm and Yes engaged ATTENTION/CONCENTRATION: Yes attention grossly intact Skin: COMMON NORMALS: no rashes or lesions noted GENERAL SKIN EXAM: no rashes or lesions noted Urinary Catheter Management^: Beltran: Cath Placed During This Visit: yes Reason for Continuing Indwelling Catheter: Required Immobilization for Trauma or Surgery or Anesthesia Urinary Catheter Date of Insertion: 09/02/21 Urinary Catheter Time of Insertion: 14:00 A&P Assessment and plan (1) Subcapital fracture of left hip: This 81-year-old woman presented to my office today with a diagnosis of a left subcapital hip fracture. The patient's son came from [place] to help take care of her, and he finally was able to convince her to come to the hospital. Her date of injury is August 18, 2021, but she has refused treatment prior to this week. She was seen in the office and plans have been made for possible surgery today, however, the patient had a Slim fast shake on her way to my office. Therefore, we were unable to proceed with operative intervention. This was discussed with the son and he understood. Plans therefore were made for her admission to the hospital with optimization and admission to the hospitalist team. She will undergo surgical intervention tomorrow. Risks and complications were discussed with the patient and her son. Consents will be signed. The planned procedure is a bipolar hip arthroplasty. Status: Acute Qualifiers: Encounter type: initial encounter Fracture type: closed Qualified Code(s): S72.012A - Unspecified intracapsular fracture of left femur, initial encounter for closed fracture Consult Attestations Medical Necessity Statement: Patient requires hospitalization for treatment of hip fracture Coding Level of Care Code Acute Allergy Nurse for [facility] Diagnoses Subcapital fracture of left hip S72.012A Encounter type: initial encounter Fracture type: closed
[2021-09-02 20:12] VITALS: BP 124/79; PULSE 68; RESP 17; TEMP 36.5; O2SAT 97
[2021-09-02 20:33] LABS: Glucose Point of Care 183 mg/dL (70-110)
[2021-09-02 20:50] VITALS: PULSE 76; RESP 14; O2SAT 94
[2021-09-02] MEDS: acetaminophen 500 mg Tablet PO (21:17)
[2021-09-02 21:21] LABS: Charge for UA Resulting for Rev
[2021-09-02 21:31] LABS: Glucose Urine UA 1+ (Normal); Ketones Urine 1+ (Negative); Protein Urine Trace (Negative); Specific Gravity, Urine 1.025 (1.005-1.030); Urine Appearance Clear (CLEAR); Urine Color Yellow (Yellow); pH Urine 5 (5-7)
[2021-09-02 21:32] LABS: Add Urine Microscopic? YES; Bilirubin Urine Neg (Negative); Blood Urine 3+ (Negative); Leukocyte Esterase Urine Negative (Negative); Nitrate Urine Negative (Negative); Urobilinogen Urine Norm (Negative)
[2021-09-03] VITALS (21 sets, daily range): BP systolic 111–161; BP diastolic 52–82; PULSE 63–102; RESP 16–18; TEMP 36.1–37.1; O2SAT 90–100
[2021-09-03] MEDS: levothyroxine 25 mcg Tablet PO (05:10)
[2021-09-03 05:33] LABS: Basophils % 0.5 %; Eosinophils # 0.1 10^3/uL (0.0-0.8); Eosinophils % 2.3 %; Hemoglobin 13.5 g/dL (11.5-15.3); Lymphocytes # 0.5 10^3/uL (0.8-4.8); Lymphocytes % 8.9 %; Mean Corpuscular HGB Conc 32.9 g/dL (30.0-36.0); Mean Corpuscular Hemoglobin 29.8 pg (28.0-34.0); Mean Corpuscular Volume 90.5 fl (81-99); Mean Platelet Volume 10.9 fL (7.4-10.4); Monocytes # 0.5 10^3/uL (0.2-0.9); Monocytes % 8.1 %; Neutrophils # 4.43 10^3/uL (1.8-7.7); Neutrophils % 79.3 %; Nucleated Red Blood Cells % 0 %; Platelet Count 225 10^3/cmm (130-400); Red Blood Count 4.53 10^6/uL (4.1-5.3); Red Cell Distribution Width 13.1 % (12.1-15.1); White Blood Count 5.6 10^3/uL (4.0-10.0)
[2021-09-03 05:58] LABS: Anion Gap 15.1 (5-19); Blood Urea Nitrogen 16 mg/dL (8-23); Calcium 8.6 mg/dL (8.5-10.5); Carbon Dioxide 24 mmol/L (22-29); Chloride 102 mmol/L (98-107); Creatinine Clr Calc Pharmacy 55.8077; Glucose 201 mg/dL (65-115); Magnesium 1.5 mg/dL (1.7-2.3); Osmolality Calculated 291 mOsm/kg (285-295); Potassium 4.1 mmol/L (3.5-5.1); Sodium 137 mmol/L (136-145)
[2021-09-03] MEDS: sodium chloride 0.9% 1,000 ML 75 ML IV (06:12)
[2021-09-03 06:30] LABS: Glucose Point of Care 209 mg/dL (70-110)
--- NOTE | 2021-09-03 09:11 | P.PN_ITS ---
Subjective Subjective: Interval history: No overnight events, patient is comfortable in her bed Satting well on room air No active pain Scheduled for surgery around noon IV fluids running at the bedside Hypomagnesemia noted We will give her ceftriaxone for abnormal UA however she is not endorsing any symptoms She does seem to have memory impairment Requested urine culture Oriented to herself Echo unremarkable mild Vitals/I&O/Wt Last Vital Signs Temp 98.1 F 09/03/21 08:00 Pulse 86 09/03/21 09:03 Resp 16 09/03/21 09:03 BP 153/82 09/03/21 08:00 Pulse Ox 95 09/03/21 09:03 09/02/21 09/03/21 09/03/21 22:59 06:59 14:59 Intake Total 600 / 600 1088.75 / 1688.75 Output Total 775 / 775 Balance 600 / 600 313.75 / 913.75 Weight last 48 hrs Weight 90.718 kg Physical Exam Narrative: EXAM NARRATIVE: Patient resting comfortably in her bed No vascular compromise of lower extremity S1, S2 systolic murmur grade 2/6 Abdomen soft EOMI, PERRL Nonfocal neuro exam Cognitive impairment Oriented to self, able to name date of Follows commands appropriately Looks euvolemic Urinary Catheter Management^: Beltran: Cath Placed During This Visit: yes Reason for Continuing Indwelling Catheter: Required Immobilization for Trauma or Surgery or Anesthesia Urinary Catheter Date of Insertion: 09/02/21 Urinary Catheter Time of Insertion: 14:00 Data : 09/03/21 05:01 09/03/21 05:01 A&P Assessment and plan (1) Subcapital fracture of left hip: Status: Acute Qualifiers: Encounter type: initial encounter Fracture type: closed Qualified Code(s): S72.012A - Unspecified intracapsular fracture of left femur, initial encounter for closed fracture (2) Type 2 diabetes mellitus: Status: Acute (3) Closed hip fracture: Status: Acute (4) Frequent falls: Status: Acute (5) UTI (urinary tract infection): Status: Acute Additional A&P Information Left hip fracture Going to the OR around noon No overnight events Pain under control Type 2 diabetes, does not use insulin at home Slightly hyperglycemic Continue IV fluids Hypomagnesemia: Repleted Full code DVT prophylaxis on hold secondary to anticipation of surgery today Abnormal UA however patient not endorsing symptoms, she cognitive impairment, will give her 1 dose of ceftriaxone, request urine culture, please note leukocyte esterase and urine nitrate negative Attestations Medical Necessity Statement*: Surgery today Time Spent in Patient Care: less than 15 minutes Coding Level of Care Code Acute Awning Frame Maker for Bautista Fwd Diagnoses Subcapital fracture of left hip S72.012A Encounter type: initial encounter Fracture type: closed Type 2 diabetes mellitus E11.9 Closed hip fracture S72.009A Frequent falls R29.6 UTI (urinary tract infection) N39.0
[2021-09-03] MEDS: insulin lispro 100 unit/1 mL SUBCUT ×2 (09:12→18:09)
[2021-09-03] MEDS: amlodipine 10 mg Tablet PO (09:12)
[2021-09-03] MEDS: cefTRIAXone 1,000 MG in sodium chloride 0.9% (plus) 50 ML 100 MG IV (09:13)
[2021-09-03] MEDS: ondansetron 2 mg/ML SDV 2 mL 4 MG IVP (09:26)
--- NOTE | 2021-09-03 10:41 | PC.CHAP ---
Pastoral Care Encounter/Spiritual Assessment Type of Contact [] Declined interface engineer visit [] Patient/Family/Request visit [] Outpatient visit [] Follow-up visit [] Physician referral [] Code/Alert [xx] Routine visit [] Staff referral [] Actively dying [] Patient sleeping [] Family support [] [] Out of room [] Palliative care [] [] Receiving care in room [xxx] Pre-surgical visit [] Trauma [] Long length of stay [] ICU visit [] Other: Relational/Emotional Strength [xx] Patient feels connected with others/family/visitors/staff [] Distress [] Loneliness/isolation [] Abandonment Spirituality of Patient [xx] Person of Alina [xx] Attends Caodaism of their Alina [xx] Believes in Prayer [xx] Reads Bible or Yarsani materials [] There are Spiritual issues to be addressed Guest Relations Manager Interventions [xx] Prayer [xx] Active listening [xx] Non-anxious presence [xx] Spiritual/emotional support [] Crisis/trauma care [] Spiritual counseling [] Bereavement support [] Provided bereavement packet [xx] Provided Bible/devotional materials [] Provided toy/stuffed animal, coloring book to patient or family member [] Provided Communion [] Anointing/[place] [] Salvation [xx] Completed spiritual assessment [] Other: Impact on Illness or Injury [] Angry [] Fearful [x] Anxious [] Often cries [] Exhaustion [] Unable to work [] Unable to attend denominational [] Unable to walk/stand [] Unable to read [] Unable to drive [] Unable to eat/drink [] Unable to sleep [] Unable to be with family [] Patient intubated [] Other: Summary Patient's grandson was present. He spoke for her. Patient is being preppeed for surgery later today and then will be discharged to a rehab location. Patient was rather groggy and not talkative. Time spent with patient 5 minutes
[2021-09-03 10:54] LABS: Glucose Point of Care 205 mg/dL (70-110)
--- NOTE | 2021-09-03 12:10 | ANES.PREANE2 ---
Pre-Anesthetic Assessment Pre-Anesthetic Assessment: Height/Weight: Height 1.57 m Weight 90.718 kg Temp Pulse Resp BP Pulse Ox 97.5 F L 102 H 16 138/81 92 09/03/21 10:52 09/03/21 10:52 09/03/21 10:52 09/03/21 10:52 09/03/21 10:52 Preop Diagnosis: Left subcapital hip fracture Proposed Procedure: Operation Date: 09/03/21 11:30 Proposed Procedures p left Hemiarthroplasty Hip(Left) - Polly Garay MD CV/HEM: Comments: 09/02/20 echo CONCLUSIONS 1-Normal left ventricular cavity size. Normal left ventricular systolic function. No regional wall motion abnormalities. Left ventricular ejection fraction is estimated at 60 %. 2-Severe aortic valve calcification. Mild aortic valve stenosis, mean gradient 8.1 mmHg, ARIS 1.8 cm squared. Trace aortic valve regurgitation. 3-Moderately thickened mitral valve. No mitral valve stenosis. Moderate mitral annular calcification. Mild mitral valve regurgitation. 4-Structurally normal tricuspid valve without significant stenosis or regurgitation. Pulmonary artery systolic pressure is normal. 5-There is no pericardial effusion. 6-Pulmonary artery systolic pressure is within normal limits. 7-There are no prior echocardiogram studies to compare. Metabolic: Metabolic: DM, Hyperlipidemia, Morbid obesity and Thyroid Anesthetic Plan: ASA status: 3 Anesthesia: General Risk of > 500 ml blood loss (7ml/kg in children): No Medications/Allergies Current Medications: Current Medications Generic Name Dose Route Start Last Admin Trade Name Freq PRN Reason Stop Dose Admin Acetaminophen 500 mg 09/02/21 14:51 09/02/21 21:17 Acetaminophen 50 0 Mg Tablet PO 500 mg Q4H PRN Administration fever Amlodipine Besylat e 10 mg 09/03/21 09:00 09/03/21 09:12 Amlodipine 10 Mg Tablet PO 10 mg DAILY DOMITILA Administration Sodium Chloride 1,000 mls @ 75 ml s/hr 09/02/21 14:51 09/03/21 06:12 Sodium Chloride 0.9% IV 75 mls/hr .[id number] DOMITILA Administration Insulin Human Lisp ro 0 unit 09/02/21 18:00 09/03/21 09:12 Insulin Lispro 1 00 Unit/1 Ml SUBCUT 6 unit TIDWM DOMITILA Administration Protocol Levothyroxine Sodi um 25 mcg 09/03/21 06:00 09/03/21 05:10 Levothyroxine 25 Mcg Tablet PO 25 mcg QAM DOMITILA Administration Levothyroxine Sodi um 25 mcg 09/03/21 06:00 09/03/21 09:09 Levothyroxine 25 Mcg Tablet PO Not Given QAM DOMITILA Ondansetron HCl 4 mg 09/02/21 14:51 09/03/21 09:26 Ondansetron 2 Mg /Ml Sdv 2 Ml IVP 4 mg Q6H PRN Administration NAUSEA AND VOMITI NG Senna/Docusate Sod ium 1 tab 09/03/21 09:00 09/03/21 10:16 Sennosides-Docus ate Tablet PO Not Given DAILY DOMITILA PFSH Anesthesia PFSH: Medical History Claustrophobia Depression with anxiety Diabetes Diabetes mellitus without complication DJD (degenerative joint disease) Dyslipidemia Essential hypertension Hypothyroid Obesity Surgical History History of cholecystectomy History of lumpectomy Social History Alcohol intake: never Lives independently: Yes Household members: none Marital status: / service: No Current occupational status: retired History of recent travel: No Current gender identity: Female Special iza needs: No Data Anesthesia CBC & Chem 7: 09/03/21 05:01 09/03/21 05:01 Other Labs: Laboratory Results - last 48 hr 09/02/21 09/02/21 09/02/21 12:45 13:44 13:44 WBC 8.5 RBC 4.39 Hgb 12.9 Hct 39.2 MCV 89.3 MCH 29.4 MCHC 32.9 RDW 13.1 Plt Count 221 MPV 12.2 H Neut % (Auto) 74.8 Lymph % (Auto) 15.2 Clinch % (Auto) 6.5 Eos % (Auto) 2.2 Baso % (Auto) 0.7 Neut # (Auto) 6.36 Lymph # (Auto) 1.3 Clinch # (Auto) 0.6 Eos # (Auto) 0.2 Baso # (Auto) 0.1 Nucleated RBC % (auto) 0 Nucleated RBCs # 0.0 PT Cancelled INR Cancelled APTT Cancelled Sodium Potassium Chloride Carbon Dioxide Anion Gap BUN Creatinine GFR Calculation Glucose POC Glucose Calculated Osmolality Calcium Magnesium Urine Color Yellow Urine Appearance Hazy A Urine pH 5 Ur Specific [place] 1.025 Urine Protein Neg Urine Glucose (UA) 2+ H Urine Ketones Negative Urine Blood 3+ H Urine Nitrate Negative Urine Bilirubin Neg Urine Urobilinogen Norm Ur Leukocyte Esterase Trace H Urine RBC 0-4 H Urine WBC 10-15 H Ur Squamous Epith Cells 5-10 H Amorphous Sediment Not Reportable Urine Bacteria Trace 09/02/21 09/02/21 09/02/21 13:44 14:25 14:25 WBC RBC Hgb Hct MCV MCH MCHC RDW Plt Count MPV Neut % (Auto) Lymph % (Auto) Clinch % (Auto) Eos % (Auto) Baso % (Auto) Neut # (Auto) Lymph # (Auto) Clinch # (Auto) Eos # (Auto) Baso # (Auto) Nucleated RBC % (auto) Nucleated RBCs # PT 13.80 INR 1.03 APTT 28.1 Sodium Cancelled 137 Potassium Cancelled 4.6 Chloride Cancelled 101 Carbon Dioxide Cancelled 24 Anion Gap Cancelled 16.6 BUN Cancelled 19 Creatinine Cancelled 0.6 GFR Calculation Cancelled Not Reportable Glucose Cancelled 241 H POC Glucose Calculated Osmolality Cancelled 294 Calcium Cancelled 8.6 Magnesium Urine Color Urine Appearance Urine pH Ur Specific [place] Urine Protein Urine Glucose (UA) Urine Ketones Urine Blood Urine Nitrate Urine Bilirubin Urine Urobilinogen Ur Leukocyte Esterase Urine RBC Urine WBC Ur Squamous Epith Cells Amorphous Sediment Urine Bacteria 09/02/21 09/02/21 09/02/21 17:28 20:30 21:10 WBC RBC Hgb Hct MCV MCH MCHC RDW Plt Count MPV Neut % (Auto) Lymph % (Auto) Clinch % (Auto) Eos % (Auto) Baso % (Auto) Neut # (Auto) Lymph # (Auto) Clinch # (Auto) Eos # (Auto) Baso # (Auto) Nucleated RBC % (auto) Nucleated RBCs # PT INR APTT Sodium Potassium Chloride Carbon Dioxide Anion Gap BUN Creatinine GFR Calculation Glucose POC Glucose 264 H 183 H Calculated Osmolality Calcium Magnesium Urine Color Yellow Urine Appearance Clear Urine pH 5 Ur Specific [place] 1.025 Urine Protein Trace Urine Glucose (UA) 1+ H Urine Ketones 1+ H Urine Blood 3+ H Urine Nitrate Negative Urine Bilirubin Neg Urine Urobilinogen Norm Ur Leukocyte Esterase Negative Urine RBC Urine WBC Ur Squamous Epith Cells Amorphous Sediment Urine Bacteria 09/03/21 09/03/21 09/03/21 05:01 05:01 06:26 WBC 5.6 RBC 4.53 Hgb 13.5 Hct 41.0 MCV 90.5 MCH 29.8 MCHC 32.9 RDW 13.1 Plt Count 225 MPV 10.9 H Neut % (Auto) 79.3 Lymph % (Auto) 8.9 Clinch % (Auto) 8.1 Eos % (Auto) 2.3 Baso % (Auto) 0.5 Neut # (Auto) 4.43 Lymph # (Auto) 0.5 L Clinch # (Auto) 0.5 Eos # (Auto) 0.1 Baso # (Auto) 0.0 Nucleated RBC % (auto) 0 Nucleated RBCs # 0.0 PT INR APTT Sodium 137 Potassium 4.1 Chloride 102 Carbon Dioxide 24 Anion Gap 15.1 BUN 16 Creatinine 0.6 GFR Calculation Not Reportable Glucose 201 H POC Glucose 209 H Calculated Osmolality 291 Calcium 8.6 Magnesium 1.5 L Urine Color Urine Appearance Urine pH Ur Specific [place] Urine Protein Urine Glucose (UA) Urine Ketones Urine Blood Urine Nitrate Urine Bilirubin Urine Urobilinogen Ur Leukocyte Esterase Urine RBC Urine WBC Ur Squamous Epith Cells Amorphous Sediment Urine Bacteria 09/03/21 10:49 WBC RBC Hgb Hct MCV MCH MCHC RDW Plt Count MPV Neut % (Auto) Lymph % (Auto) Clinch % (Auto) Eos % (Auto) Baso % (Auto) Neut # (Auto) Lymph # (Auto) Clinch # (Auto) Eos # (Auto) Baso # (Auto) Nucleated RBC % (auto) Nucleated RBCs # PT INR APTT Sodium Potassium Chloride Carbon Dioxide Anion Gap BUN Creatinine GFR Calculation Glucose POC Glucose 205 H Calculated Osmolality Calcium Magnesium Urine Color Urine Appearance Urine pH Ur Specific [place] Urine Protein Urine Glucose (UA) Urine Ketones Urine Blood Urine Nitrate Urine Bilirubin Urine Urobilinogen Ur Leukocyte Esterase Urine RBC Urine WBC Ur Squamous Epith Cells Amorphous Sediment Urine Bacteria Cardiac Studies: Echocardiogram 09/02/21
[2021-09-03] MEDS: sodium chloride 0.9% 1,000 ML 30 ML IV (12:39)
[2021-09-03] MEDS: acetaminophen 1,000 MG/100 ML PIGGYBACK 400 MG IV ×2 (12:40→19:22)
--- NOTE | 2021-09-03 13:12 | P.HPUD_ITS ---
Surgery/Procedure H&P Update DATE OF PROCEDURE: September 03, 2021 DATE H&P PERFORMED: 09/02/21 H&P UPDATE INFORMATION: I have reviewed H&P completed within last 30 days, I have examined patient prior to procedure, No changes to prior documentation and [place] [facility] [place] PREOP DIAGNOSIS: Left subcapital hip fracture PRIMARY INDICATION FOR PROCEDURE: Left subcapital hip fracture PLANNED PROCEDURE: Operation Date: 09/03/21 11:30 Proposed Procedures p left Hemiarthroplasty Hip(Left) - Polly Garay MD Related Problem List Diagnoses (1) Subcapital fracture of left hip: Qualifiers: Encounter type: initial encounter Fracture type: closed Qualified Code(s): S72.012A - Unspecified intracapsular fracture of left femur, initial encounter for closed fracture
[2021-09-03] MEDS: ceFAZolin 1,000 mg SDV 1000 MG IRRIGATION (14:40)
[2021-09-03] MEDS: vancomycin 1,000 MG SDV 1000 MG XX (14:40)
--- NOTE | 2021-09-03 15:57 | XR_ITS ---
WS: [id number] XR pelvis 1-2V* [id number] REASON FOR EXAM: Left bipolar hip arthroplasty FINDINGS: Total left hip arthroplasty for previously demonstrated subcapital fracture. Prosthetic complements in proper position and alignment. Normal left hip joint alignment. XR/XR pelvis 1-2V* [id number] IMPRESSION: Total left hip arthroplasty without abnormality.
--- NOTE | 2021-09-03 16:02 | P.OP_ITS ---
Operative Report Date of procedure: September 03, 2021 Pre-op Diagnosis: Left subcapital hip fracture subacute Post-op diagnosis: same Post-op Findings: Impacted left subcapital hip fracture, 2 weeks old Procedure Done: Left bipolar hip arthroplasty Implants: The [place] hip system with the following implants: The Accolade II 127 degree neck angle size 4 femoral stem with a V40 LFIT femoral head size 28 mm x +4 mm and a universal head component bipolar size 48 mm outer diameter by 28 mm inner diameter. Specimens removed/disposition: Femoral head, disposed of Pathology: none sent Surgeon: Polly Garay Sneller Hand: [facility] operating room technicians Anesthesia: General (Per endotracheal tube, ASA 3) Estimated blood loss (mL): 150 IV fluids (mL): 1,100 Urine output (mL): 600 Complications: None Findings: Impacted femoral neck fracture with out healing. Following the procedure, the hip was stable at 90 degrees of flexion with 90 degrees of internal rotation and 30 degrees of adduction. It was also stable to toe hang and external rotation. Condition: stable Disposition: PACU (Then to floor for postoperative rehabilitation and pain management) Brief History: The patient is an 80-year-old woman who was in her usual state of health when she fell in her home on approximately August 18, 2021. The patient refused to come to the hospital. Her grandson who lives in [place] was called and he convinced her to go to the primary care office. While in the primary care office, the patient had x-ray findings consistent with a subcapital hip fracture which was impacted, but at the time of evaluation was approximately [address] scan confirmed this finding, and the patient was sent to my office. Initially, she was sent home and advised to be nonweightbearing, but at the request of the grandson, I saw her in the office. Plans have been made for her to have surgical intervention yesterday at the time of her presentation to my office, but unfortunately, she had had a Slim fast shake on her way to the office, and therefore, we had to delay her procedure until today. Procedure: The patient was brought to the operating theater, and after undergoing adequate general anesthesia, intubated, ASA 3, she was transferred to the operating room table. The patient was placed in the full lateral position and held in place with the pegboard. Patient's left lower extremity was draped free and was subsequently prepped and further draped free. A surgical pause was performed prior to commencement of the surgical procedure. During the surgical pause, we confirmed the site and side of surgery as well as availability of equipment. Additionally, we confirmed preoperative surgical markings. X-rays are also reviewed during this time. Preoperatively, the patient was given Ancef 2 g as well as 1 g of TXA. Following the surgical pause, an incision was made centering over the greater trochanter continuing proximally and distally as necessary to allow access to the hip joint. Dissection continued through skin and soft tissue using scalpel. Hemostasis was obtained using electrocautery. Tensor fascia anni was identified and incised longitudinally. Sciatic nerve was identified and protected throughout the surgical procedure. A Charnley U retractor was placed with care being taken to protect the sciatic nerve during placement. The hip was internally rotated. Piriformis muscle was then identified, tagged, and subsequently incised from the posterior aspect of the hip joint. The remaining short external rotators were also incised. These were then elevated off the capsule and the capsule was entered in a T-type fashion. Each side of the capsule was then tagged. The proximal femur was brought into an appropriate position of the femoral neck osteotomy was accomplished. This was in appropriate position for placement of the prosthetic component. Femoral head was then removed from the acetabulum utilizing a corkscrew. It was subsequently measured. The appropriate size trial was chosen. This was a size 46 mm. Head size was b ased on the removed femoral head, and size 46 mm gave excellent stability of the head within the acetabulum. Therefore, this was the chosen size for implantation. Other trials were evaluated as well, but they were felt to either not give good stability or be too small. The femoral manufacturing quality inspector was then placed and attention was directed to the proximal femur. An oscillating saw was used to excise excess bone from the femoral neck. Initially, the proximal femur was addressed with a box chisel, and this was followed by a canal finder and subsequently broaches. The hip was broached to a size 4 which was noted to fit nicely and have good fit and fill. Therefore this was to be the chosen component. Trial reduction was then accomplished with a 46 mm by 28 mm universal bipolar head component, a +4 mm by 28 mm femoral head. With this, the above- noted stabilities were accomplished. This was felt to be appropriate and therefore trial components were removed and the hip was irrigated. Acetabulum wa s evaluated for any loose bodies or other soft tissues requiring resection. We then prepared for implantation. The size 4 Accolade II 127 degree neck angle hip stem was then impacted into position. On the back table, we assembled the 46 mm universal bipolar head component with a +4 mm offset by 28 mm femoral head. Care was taken to ensure that this was appropriately assembled. This was placed onto the trunnion of the femoral component. It was impacted into position and pulled upon to assure that there was no dissociation. Once again the hip was irrigated and suctioned dry and was reduced. We then irrigated the hip further with 20 mL of Betadine mixed into 500 mL of normal saline. This was allowed to remain in the wound for approximately 3 minutes. It was then suctioned dry and irrigated with normal saline. This was suctioned dry again and closure was accomplished with 0 Vicryl in the capsular tissues followed by reattachment of the piriformis with 0 Vicryl. Additionally, the tensor was closed with 0 Vicryl in an interrupted fashion. Subcutaneous tissues were closed with a combination of 0 Vicryl and 2-0 Monocryl. Skin was closed with 3-0 Monocryl. This was followed by Dermabond pernio. A sterile dressing was placed consisting of Opsite. Abduction pillow was placed. The patient was returned the Recovery Room in satisfactory condition. There were no complications. The patient will be discharged to the floor for postoperative rehabilitation and pain management. Associated Problem List Diagnoses (1) Subcapital fracture of left hip: Qualifiers: Encounter type: initial encounter Fracture type: closed Qualified Code(s): S72.012A - Unspecified intracapsular fracture of left femur, initial encounter for closed fracture
--- NOTE | 2021-09-03 16:40 | ANE.PACU2 ---
Inpatient post-anesthesia follow up: Airway intact: Yes Vital signs: Temperature 98.7 F Pulse Rate 70 Respiratory Rate 17 Blood Pressure 152/52 Pulse Oximetry 94 Oxygen Delivery Me thod Room Air Oxygen Flow Rate 3 Fraction of Inspir ed Oxygen Hydration adequate: Yes Nausea and vomiting: No Pain level: 2 Mental status: Baseline
[2021-09-03] MEDS: oxyCODONE 5 mg IR Tab/Cap PO (17:28)
[2021-09-03] MEDS: calcium carbonate 500 mg Chew Tablet 1000 MG PO (17:29)
[2021-09-03 17:30] LABS: Glucose Point of Care 217 mg/dL (70-110)
[2021-09-03] MEDS: iron polysaccharide complex 150 mg Capsule PO (17:30)
[2021-09-03] MEDS: chlorhexidine gluconate 0.12% Btl 473 mL 30 ML MUCOUS MEM ×2 (18:10→20:28)
[2021-09-03] MEDS: mupirocin oint 22 gm 1 APPLIC NASAL (18:10)
[2021-09-03] MEDS: HYDROmorphone 1 mg/mL INJ 1 mL 0.4 MG IVP (20:33)
[2021-09-03] MEDS: CELEcoxib 200 mg Capsule PO (21:19)
[2021-09-03 21:25] LABS: Glucose Point of Care 245 mg/dL (70-110)
[2021-09-04] VITALS (9 sets, daily range): BP systolic 96–118; BP diastolic 57–64; PULSE 69–76; RESP 16–19; TEMP 36.6–37.2; O2SAT 91–96
[2021-09-04] MEDS: sodium chloride 0.9% 1,000 ML 75 ML IV (03:06)
[2021-09-04] MEDS: morphine IR 15 mg Tablet PO ×2 (03:09→16:08)
[2021-09-04] MEDS: acetaminophen 1,000 MG/100 ML PIGGYBACK 400 MG IV ×2 (03:52→12:39)
[2021-09-04 05:29] LABS: Basophils % 0.2 %; Hematocrit 35.5 % (37.0-47.0); Hemoglobin 11.8 g/dL (11.5-15.3); Lymphocytes # 0.5 10^3/uL (0.8-4.8); Lymphocytes % 7.5 %; Mean Corpuscular HGB Conc 33.2 g/dL (30.0-36.0); Mean Corpuscular Hemoglobin 29.9 pg (28.0-34.0); Mean Corpuscular Volume 90.1 fl (81-99); Mean Platelet Volume 11.3 fL (7.4-10.4); Monocytes # 0.6 10^3/uL (0.2-0.9); Monocytes % 9.7 %; Neutrophils # 5.24 10^3/uL (1.8-7.7); Neutrophils % 81.7 %; Nucleated Red Blood Cells % 0 %; Platelet Count 204 10^3/cmm (130-400); Red Blood Count 3.94 10^6/uL (4.1-5.3); Red Cell Distribution Width 13.1 % (12.1-15.1); White Blood Count 6.4 10^3/uL (4.0-10.0)
[2021-09-04 05:47] LABS: Magnesium 1.8 mg/dL (1.7-2.3)
[2021-09-04 05:50] LABS: Anion Gap 16.4 (5-19); Blood Urea Nitrogen 13 mg/dL (8-23); Calcium 7.8 mg/dL (8.5-10.5); Carbon Dioxide 22 mmol/L (22-29); Chloride 104 mmol/L (98-107); Creatinine Clr Calc Pharmacy 55.8077; Glucose 240 mg/dL (65-115); Osmolality Calculated 294 mOsm/kg (285-295); Potassium 4.4 mmol/L (3.5-5.1); Sodium 138 mmol/L (136-145)
[2021-09-04] MEDS: levothyroxine 25 mcg Tablet PO (06:02)
[2021-09-04 06:38] LABS: Glucose Point of Care 243 mg/dL (70-110)
[2021-09-04] MEDS: insulin lispro 100 unit/1 mL SUBCUT ×3 (08:14→17:45)
[2021-09-04] MEDS: multivitamin therapeutic Tablet 1 TAB PO (08:14)
[2021-09-04] MEDS: cholecalciferol (vitamin D3) 1,000 unit Tablet 1000 UNIT PO (08:15)
[2021-09-04] MEDS: sennosides-docusate Tablet 1 TAB PO (08:15)
[2021-09-04] MEDS: amlodipine 10 mg Tablet PO (08:15)
[2021-09-04] MEDS: iron polysaccharide complex 150 mg Capsule PO ×2 (08:15→17:45)
[2021-09-04] MEDS: calcium carbonate 500 mg Chew Tablet 1000 MG PO ×2 (08:15→17:45)
[2021-09-04] MEDS: aspirin 325 mg EC Tablet PO (08:15)
[2021-09-04] MEDS: mupirocin oint 22 gm 1 APPLIC NASAL ×2 (08:22→17:52)
[2021-09-04] MEDS: chlorhexidine gluconate 0.12% Btl 473 mL 30 ML MUCOUS MEM ×4 (08:22→20:10)
[2021-09-04] MEDS: CELEcoxib 200 mg Capsule PO (11:23)
[2021-09-04 11:35] LABS: Glucose Point of Care 228 mg/dL (70-110)
--- NOTE | 2021-09-04 11:37 | P.PN_ITS ---
Subjective Subjective: Interval history: Postop day 0 On room air No postoperative complications Hemoglobin 11.8 No events during surgery Patient is awaiting placement to longterm on Monday Vitals/I&O/Wt Last Vital Signs Temp 98.9 F 09/04/21 11:34 Pulse 72 09/04/21 11:34 Resp 16 09/04/21 11:34 BP 104/62 09/04/21 11:34 Pulse Ox 91 09/04/21 11:34 09/03/21 09/04/21 09/04/21 22:59 06:59 14:59 Intake Total 3220 / 3592 280 / 3872 480 / 480 Output Total 2049 / 2049 250 / 2300 Balance 1170 / 1542 30 / 1572 480 / 480 Weight last 48 hrs Weight 90.718 kg Physical Exam Narrative: EXAM NARRATIVE: Patient resting comfortably in her bed No active pain S1, S2 Abdomen soft Saturating well on room air No audible stridor or wheezing Bilateral lower extremity without any sign of vascular ischemia EOMI, PERRLA No joint swelling Hemovac has about 50 cc of blood in it Urinary Catheter Management^: Beltran: Cath Placed During This Visit: yes, but has since been removed by the nurse Reason for Continuing Indwelling Catheter: Required Immobilization for Trauma or Surgery or Anesthesia Urinary Catheter Date of Insertion: 09/02/21 Urinary Catheter Time of Insertion: 14:00 Date Urinary Catheter Removed: 09/04/21 Time Urinary Catheter Discontinued: 06:14 Data : 09/04/21 05:09 09/04/21 05:09 A&P Assessment and plan (1) Subcapital fracture of left hip: Status: Acute Qualifiers: Encounter type: initial encounter Fracture type: closed Qualified Code(s): S72.012A - Unspecified intracapsular fracture of left femur, initial encounter for closed fracture (2) Type 2 diabetes mellitus: Status: Acute (3) Closed hip fracture: Status: Acute (4) Frequent falls: Status: Acute (5) UTI (urinary tract infection): Status: Acute (6) Diabetes: Status: Acute (7) Essential hypertension: Status: Acute Additional A&P Information Postop day 1 Perioperative complications Saturating well on room air Hemoglobin stable Awaiting longterm placement on Monday To work with physical therapy today Optimize insulin regimen for her uncontrolled type 2 diabetes, she will need insulin at the time of discharge UTI: Continue ceftriaxone Full code Cognitive impairment Essential hypertension: Currently normotensive Attestations Medical Necessity Statement*: Nursing placement on Monday Time Spent in Patient Care: less than 15 minutes Coding Level of Care Code 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
[2021-09-04] MEDS: cefTRIAXone 1,000 MG in sodium chloride 0.9% (plus) 50 ML 100 MG IV (13:15)
[2021-09-04 17:03] LABS: Glucose Point of Care 201 mg/dL (70-110)
--- NOTE | 2021-09-04 18:10 | PC.NURSE ---
Patient has not urinated since having the vanessa taken out this morning. Bladder scanned patient. Bladder scan showed 124 mL in bladder. Informed Dr. Trammell.
[2021-09-04] MEDS: lactated ringers 1,000 ML 999 ML IV (18:41)
[2021-09-04] MEDS: insulin glargine 100 units/1 mL 15 UNIT SUBCUT (20:10)
[2021-09-04 20:43] LABS: Glucose Point of Care 211 mg/dL (70-110)
[2021-09-04] MEDS: oxyCODONE 5 mg IR Tab/Cap PO (21:27)
[2021-09-05] VITALS (7 sets, daily range): BP systolic 92–129; BP diastolic 53–75; PULSE 80–99; RESP 16–19; TEMP 36.6–37.7; O2SAT 90–95
--- NOTE | 2021-09-05 02:45 | PC.NURSE ---
0005 Bladder scan completed. 777ml found in bladder. Dr. Copeland called. New order place vanessa. Vanessa placed using sterile technique with assistance from Oksana CSU nurse, and VIGNESH Jeffries. Secured with STAT lock to left inner thigh after skin prep usage. Patient tolerated well. 350 ml's clear yellow urine immediately returned. Draining well.
[2021-09-05 05:14] LABS: Basophils % 0.4 %; Eosinophils # 0.1 10^3/uL (0.0-0.8); Eosinophils % 1.6 %; Hematocrit 34.5 % (37.0-47.0); Lymphocytes # 0.6 10^3/uL (0.8-4.8); Lymphocytes % 12.5 %; Mean Corpuscular HGB Conc 31.9 g/dL (30.0-36.0); Mean Corpuscular Hemoglobin 29.3 pg (28.0-34.0); Mean Corpuscular Volume 91.8 fl (81-99); Mean Platelet Volume 11.3 fL (7.4-10.4); Monocytes # 0.4 10^3/uL (0.2-0.9); Monocytes % 8.4 %; Neutrophils # 3.88 10^3/uL (1.8-7.7); Neutrophils % 76.1 %; Nucleated Red Blood Cells % 0 %; Platelet Count 163 10^3/cmm (130-400); Red Blood Count 3.76 10^6/uL (4.1-5.3); Red Cell Distribution Width 13.3 % (12.1-15.1); White Blood Count 5.1 10^3/uL (4.0-10.0)
[2021-09-05 05:41] LABS: Blood Urea Nitrogen 13 mg/dL (8-23); Calcium 8.1 mg/dL (8.5-10.5); Carbon Dioxide 25 mmol/L (22-29); Chloride 102 mmol/L (98-107); Creatinine Clr Calc Pharmacy 55.8077; Glucose 189 mg/dL (65-115); Osmolality Calculated 287 mOsm/kg (285-295); Sodium 136 mmol/L (136-145)
[2021-09-05] MEDS: levothyroxine 25 mcg Tablet PO (06:01)
[2021-09-05 06:36] LABS: Glucose Point of Care 185 mg/dL (70-110)
[2021-09-05] MEDS: calcium carbonate 500 mg Chew Tablet 1000 MG PO ×2 (08:45→17:47)
[2021-09-05] MEDS: sennosides-docusate Tablet 1 TAB PO (08:45)
[2021-09-05] MEDS: iron polysaccharide complex 150 mg Capsule PO ×2 (08:45→17:47)
[2021-09-05] MEDS: multivitamin therapeutic Tablet 1 TAB PO (08:45)
[2021-09-05] MEDS: insulin lispro 100 unit/1 mL SUBCUT (08:46)
[2021-09-05] MEDS: cholecalciferol (vitamin D3) 1,000 unit Tablet 1000 UNIT PO (08:46)
[2021-09-05] MEDS: aspirin 325 mg EC Tablet PO (08:46)
[2021-09-05] MEDS: mupirocin oint 22 gm 1 APPLIC NASAL ×2 (09:15→17:49)
[2021-09-05] MEDS: chlorhexidine gluconate 0.12% Btl 473 mL 30 ML MUCOUS MEM ×2 (09:15→20:10)
--- NOTE | 2021-09-05 10:42 | P.PN_ITS ---
Subjective Subjective: Interval history: Patient was able to get out of bed and sit in a chair working with physical therapy however has not made significant progress, Beltran catheter placed for accurate ins and outs, 100 cc noted overnight Adequate urine output 1 L fluid bolus was given secondary to low blood pressure and urine output She is fluid responsive This morning also very pleasant eating her breakfast 2 L oxygen Vitals/I&O/Wt Last Vital Signs Temp 99.5 F 09/05/21 08:42 Pulse 99 09/05/21 09:43 Resp 17 09/05/21 09:43 BP 92/53 09/05/21 08:42 Pulse Ox 95 09/05/21 09:43 09/04/21 09/05/21 09/05/21 22:59 06:59 14:59 Intake Total 2540 / 3170 720 / 3890 120 / 120 Output Total 50 / 50 1000 / 1050 350 / 350 Balance 2490 / 3120 -280 / 2840 -230 / -230 Physical Exam Narrative: EXAM NARRATIVE: Sitting in a chair EOMI, PERRLA Very pleasant and cooperative S1, S2 Saturating well on 2 L Abdomen soft Lower extremity no edema Nonfocal neuro exam Urinary Catheter Management^: Beltran: Cath Placed During This Visit: yes, but has since been removed by the nurse Reason for Continuing Indwelling Catheter: Required Immobilization for Trauma or Surgery or Anesthesia Urinary Catheter Date of Insertion: 09/05/21 Urinary Catheter Time of Insertion: 00:10 Date Urinary Catheter Removed: 09/04/21 Time Urinary Catheter Discontinued: 06:14 Data : 09/05/21 04:57 09/05/21 04:57 Micro: Microbiology 09/03/21 21:00 Urine Culture - Preliminary Urine Catheterized A&P Assessment and plan (1) Type 2 diabetes mellitus: Status: Acute (2) Subcapital fracture of left hip: Status: Acute Qualifiers: Encounter type: initial encounter Fracture type: closed Qualified Code(s): S72.012A - Unspecified intracapsular fracture of left femur, initial encounter for closed fracture (3) Anxiety: Status: Acute (4) Frequent falls: Status: Acute Additional A&P Information Postop day 2 Secondary to hypoventilation she is requiring 2 L, wean oxygen off Hemoglobin stable Afebrile Awaiting placement to [facility] on Monday Low blood pressure, hold amlodipine She received 1 L bolus yesterday which improved her blood pressure Hypothyroidism: TSH normal Type 2 diabetes will be discharged on insulin currently euglycemic Consistent carb diet Beltran catheter to be removed before discharge P.o. 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
--- NOTE | 2021-09-05 12:15 | PC.SOCIAL ---
IMM Update Pg. 2 of IMM updated and reviewed with patient and her grandson at bedside. Copy provided.
[2021-09-05 17:19] LABS: Glucose Point of Care 185 mg/dL (70-110)
[2021-09-05 17:19] LABS: Glucose Point of Care 192 mg/dL (70-110)
[2021-09-05] MEDS: magnesium oxide 400 mg tablet PO (17:47)
--- NOTE | 2021-09-05 18:00 | PM.MISC ---
Miscellaneous Note Purpose of Documentation: Patient rounds Note: Patient was admitted following her left bipolar hip arthroplasty. She worked with physical therapy over the weekend, and I spoke with nursing both Monday and Monday. Patient was doing well and had no orthopedic complaints. On the evening of the , the patient became more confused. COVID testing was accomplished and a head CT was ordered. The patient did test positive for COVID.
[2021-09-05] MEDS: insulin glargine 100 units/1 mL 15 UNIT SUBCUT (20:10)
[2021-09-05 20:13] LABS: Adenovirus Not Detected (NOT DETECT); Chlamydia Pneumoniae Not Detected (NOT DETECT); Coronavirus 229E,HKU1,NL63,OC4 Not Detected (NOT DETECT); Human Metapneumovirus Not Detected (NOT DETECT); Human Rhinovirus/Enterovirus Not Detected (NOT DETECT); Influenza A Not Detected (NOT DETECT); Influenza A H1 Not Detected (NOT DETECT); Influenza A H1-2009 Not Detected (NOT DETECT); Influenza A H3 Not Detected (NOT DETECT); Influenza B Not Detected (NOT DETECT); Mycoplasma Pneumoniae Not Detected (NOT DETECT); Parainfluenza Virus Type 1 Not Detected (NOT DETECT); Parainfluenza Virus Type 2 Not Detected (NOT DETECT); Parainfluenza Virus Type 3 Not Detected (NOT DETECT); Parainfluenza Virus Type 4 Not Detected (NOT DETECT); Respiratory Syncytial Virus A Not Detected (NOT DETECT); Respiratory Syncytial Virus B Not Detected (NOT DETECT); SARS-COV-2 Detected (NOT DETECT)
[2021-09-05 20:55] LABS: Glucose Point of Care 150 mg/dL (70-110)
--- NOTE | 2021-09-05 21:10 | PC.NURSE ---
Spoke to Dr. Garay at 2030 to update patient status-now COVID + with confusion and increased O2 demand. No new orders at this time.
--- NOTE | 2021-09-05 21:11 | PC.NURSE ---
Spoke to Darryl funes, regarding Covid + result and limitation to visitors. Receptive and understanding. No questions at this time.
--- NOTE | 2021-09-05 21:13 | PC.NURSE ---
Notified Dr. Venegas via [employer] that patient is now Covid positive and that I have talked to surgeon, Dr. Garay, and grandson/next of kin, Darryl. No new orders at this time.
[2021-09-06] VITALS (9 sets, daily range): BP systolic 129–157; BP diastolic 66–76; PULSE 80–94; RESP 14–18; TEMP 36.6–37.4; O2SAT 91–94
[2021-09-06] MEDS: levothyroxine 25 mcg Tablet PO (05:21)
[2021-09-06 05:33] LABS: Hematocrit 35.2 % (37.0-47.0); Hemoglobin 11.3 g/dL (11.5-15.3)
[2021-09-06 06:12] LABS: Glucose Point of Care 143 mg/dL (70-110)
--- NOTE | 2021-09-06 07:00 | CT_ITS ---
WS: [id number] CT HEAD NONCONTRAST HISTORY: AMS TECHNIQUE: Contiguous axial imaging performed through the brain in 2.5 mm imaging. Bone and soft tiss ue windows. Sagittal and coronal reformats reviewed. All CT scans at [facility] use at least one of these dose optimization techniques: automated exposure control; mA and/or kV adjustment per pa tient size (includes targeted exams where dose is matched to clinical indication); or iterative recon struction. DLP: 913.03 mGy.cm COMPARISON: 08/23/2019 No acute intracranial hemorrhage, midline shift or mass effect. Mild atrophy and moderate chronic microvascular ischemic changes throughout the white matter. The isc hemic changes have mildly progressed since 08/23/2019. Prior lacunar infarct in the RIGHT armond is reide ntified. Ventricles: Normal size with no hydrocephalus. Paranasal sinuses: As visualized are clear. Mastoid air cells: Well pneumatized. Calvarium and scalp: Mild hyperostosis frontalis interna. Mild atherosclerotic plaque within the intracranial carotid arteries. CT/CT head wo con* [id number] IMPRESSION: 1. No acute intracranial hemorrhage or edema. 2. Mild atrophy and moderate chronic microvascular ischemic disease. 3. Remote lacunar infarct in the RIGHT armond.
[2021-09-06] MEDS: insulin lispro 100 unit/1 mL SUBCUT ×3 (08:18→17:05)
[2021-09-06] MEDS: dexamethasone 10 mg/mL INJ 6 MG IVP (08:19)
[2021-09-06] MEDS: magnesium oxide 400 mg tablet PO ×2 (08:19→17:06)
[2021-09-06] MEDS: aspirin 325 mg EC Tablet PO (08:19)
[2021-09-06] MEDS: chlorhexidine gluconate 0.12% Btl 473 mL 30 ML MUCOUS MEM ×4 (08:19→20:02)
[2021-09-06] MEDS: sennosides-docusate Tablet 1 TAB PO (08:19)
[2021-09-06] MEDS: calcium carbonate 500 mg Chew Tablet 1000 MG PO ×2 (08:19→17:05)
[2021-09-06] MEDS: multivitamin therapeutic Tablet 1 TAB PO (08:19)
[2021-09-06] MEDS: cholecalciferol (vitamin D3) 1,000 unit Tablet 1000 UNIT PO (08:19)
[2021-09-06] MEDS: iron polysaccharide complex 150 mg Capsule PO ×2 (08:19→17:06)
[2021-09-06] MEDS: mupirocin oint 22 gm 1 APPLIC NASAL ×2 (08:20→17:05)
--- NOTE | 2021-09-06 09:33 | P.PN_ITS ---
Subjective Subjective: Interval history: Over the weekend, the patient became somewhat confused, and there was concern for possible CVA. She was also tested for COVID, and was found to be positive. Today, she is resting comfortably. She is alert and oriented. There are no deficits noted. She is awaiting possible [place] [facility] transfer, but this will be complicated by her diagnosis of COV ID. Medications: Reviewed: Yes Medication Review Details: Aspirin discontinued with change to Lovenox for DVT prophylaxis Vitals/I&O/Wt Last Vital Signs Temp 98.9 F 09/06/21 04:00 Pulse 88 09/06/21 08:29 Resp 16 09/06/21 08:27 BP 157/66 09/06/21 07:23 Pulse Ox 94 09/06/21 08:27 09/05/21 09/06/21 09/06/21 22:59 06:59 14:59 Intake Total 100 / 220 420 / 640 Output Total 500 / 850 850 / 1700 Balance -400 / -630 -430 / -1060 Physical Exam Const: COMMON NORMALS: no acute distress, average body habitus, patient oriented x3 and alert GENERAL APPEARANCE: cooperative and comfortable ORIENTATION/CONSCIOUSNESS: Yes awake HENMT: COMMON NORMALS: normocephalic and atraumatic HEAD & SCALP: normocephalic and atraumatic Eye: GENERAL EYE: appearance normal, both eyes and all related structures Chest: COMMONS NORMALS: normal inspection of the chest Resp: COMMON NORMALS: normal respiratory effort EFFORT & INSPECTION: Yes able to speak in complete sentences and Yes symmetric chest movement Extremity: LEFT LOWER EXTREMITY: Yes hip joint (Dressing is in place and is pristine. There is no drainage.) Left hip: Yes inspection (No significant swelling or ecchymosis.), Yes palpation (Minimal to no tenderness.), Yes ROM (Not evaluated.) and Yes neurovascular exam (Intact distally with no evidence of DVT.) Neuro: COMMON NORMALS: patient oriented x3 SENSORIUM/ORIENTATION: Yes alert Psych: COMMON NORMALS: mental status grossly normal APPEARANCE: Yes grossly normal ATTITUDE: Yes calm and Yes engaged ATTENTION/CONCENTRATION: Yes attention grossly intact Skin: COMMON NORMALS: no rashes or lesions noted GENERAL SKIN EXAM: no rashes or lesions noted Urinary Catheter Management^: Beltran: Cath Placed During This Visit: yes, but has since been removed by the nurse Reason for Continuing Indwelling Catheter: Acute Urinary Retention or Obstruction Urinary Catheter Date of Insertion: 09/05/21 Urinary Catheter Time of Insertion: 00:10 Date Urinary Catheter Removed: 09/04/21 Time Urinary Catheter Discontinued: 06:14 Data : 09/06/21 05:15 09/05/21 04:57 Micro: Microbiology 09/03/21 21:00 Urine Culture - Final Urine Catheterized A&P Assessment and plan (1) Subcapital fracture of left hip: Patient is doing well orthopedically following a left subcapital hip fracture which was treated with a hemiarthroplasty. This occurred on September 03. Her fracture was at least 2 weeks old at the time of initial presentation on the . Secondary to n.p.o. status, although the patient was seen on the , she was unable to have her surgery until the . Over the weekend, I discussed the patient with the nursing staff, and she was doing well until Monday evening, September 05. She became confused at that time, and there was some concern regarding possible stroke according to nursing staff. She was COVID tested and a CT scan of the head was obtained. COVID testing was positive, and the CT scan was negative for any acute process. The patient is doing much better today and is alert and oriented. She will participate with physical therapy as allowed given her active COVID status. Plans are being made for her discharge to [place] [facility], and the [facility]. Status: Acute Qualifiers: Encounter type: initial encounter Fracture type: closed Qualified Code(s): S72.012A - Unspecified intracapsular fracture of left femur, initial encounter for closed fracture (2) History of left hip hemiarthroplasty: Status: Acute Attestations Medical Necessity Statement*: Patient continues to require inpatient status for medical issues. 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
[2021-09-06] MEDS: remdesivir 200 MG in sodium chloride 0.9% (100 ml) 60 ML 100 MG IV (10:34)
[2021-09-06 11:08] LABS: Glucose Point of Care 199 mg/dL (70-110)
--- NOTE | 2021-09-06 11:23 | PM.PN ---
Subjective Subjective: Interval history: COVID test was done yesterday when she was found very lethargic and fatigued however no neurological deficits were noted family meeting was done around the evening on 09/05, COVID test returned positive Currently she is on 2 L started Decadron and remdesivir, asked grandson not to visit her Holding off on her transfer to the senior care, will touch base with the facility if they are comfortable keeping COVID-patient in isolation Repeat CT head unremarkable Hemoglobin stable Vitals/I&O/Wt Last Vital Signs Temp 98.9 F 09/06/21 04:00 Pulse 88 09/06/21 08:29 Resp 16 09/06/21 08:27 BP 157/66 09/06/21 07:23 Pulse Ox 94 09/06/21 08:27 09/05/21 09/06/21 09/06/21 22:59 06:59 14:59 Intake Total 100 / 220 420 / 640 480 / 480 Output Total 500 / 850 850 / 1700 Balance -400 / -630 -430 / -1060 480 / 480 Physical Exam Narrative: EXAM NARRATIVE: Very fatigued and lethargic however able to follow commands No new focal deficit No signs of meningitis Breathing well on 2 L nasal cannula no acute respiratory distress no rhonchi wheezing or crackles Abdomen soft Patient is complaining of hip pain No vascular compromise of lower extremities Urinary Catheter Management^: Beltran: Cath Placed During This Visit: yes, but has since been removed by the nurse Reason for Continuing Indwelling Catheter: Acute Urinary Retention or Obstruction Urinary Catheter Date of Insertion: 09/05/21 Urinary Catheter Time of Insertion: 00:10 Date Urinary Catheter Removed: 09/04/21 Time Urinary Catheter Discontinued: 06:14 Data : 09/06/21 05:15 09/05/21 04:57 Micro: Microbiology 09/03/21 21:00 Urine Culture - Final Urine Catheterized A&P Assessment and plan (1) Type 2 diabetes mellitus: Status: Acute (2) Closed hip fracture: Status: Acute (3) COVID: Status: Acute (4) Frequent falls: Status: Acute (5) Acute hip pain: Status: Acute (6) Depression with anxiety: Status: Acute (7) Essential hypertension: Status: Acute (8) Obesity: Status: Acute Additional A&P Information New onset COVID-19 She was -09/02 Turned positive on 09/05, COVID test was repeated because of her worsening confusion however no active neurological deficit, CT head unremarkable Currently on 2 L nasal cannula, started Decadron remdesivir She will need to quarantine, will touch base with senior care if they have a separate rooms for COVID-positive patients Grandson updated Monitor CRP and LDH She is full code Consistent carb diet Diabetes, hemoglobin A1c above 10, need Lantus She is on aspirin high-dose for DVT prophylaxis which I will change to Lovenox because of COVID-positive status Attestations Medical Necessity Statement*: Continue medical management Time Spent in Patient Care: 16 - 35 minutes Coding Level of Care Code Acute 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
[2021-09-06] MEDS: methylphenidate 10 mg Tablet 5 MG PO (13:14)
[2021-09-06] MEDS: enoxaparin 30 mg/0.3 mL Syringe SUBCUT (13:14)
[2021-09-06 16:53] LABS: Glucose Point of Care 214 mg/dL (70-110)
[2021-09-06] MEDS: insulin glargine 100 units/1 mL 15 UNIT SUBCUT (20:01)
[2021-09-06] MEDS: oxyCODONE 5 mg IR Tab/Cap PO (20:02)
[2021-09-06 21:30] LABS: Glucose Point of Care 238 mg/dL (70-110)
[2021-09-07] VITALS (7 sets, daily range): BP systolic 124–141; BP diastolic 62–77; PULSE 69–77; RESP 16–18; TEMP 36.5–36.8; O2SAT 91–99
[2021-09-07] MEDS: enoxaparin 30 mg/0.3 mL Syringe SUBCUT ×2 (00:11→13:05)
[2021-09-07 03:33] LABS: ABG PCO2 44.6 mmHg (35-45); ABG PH Result 7.42 (7.35-7.45); Arterial Blood Gas Hematocrit 38.6 % (37-47); Base Excess ABG 3.9 mmol/L (-2.0-2.0); Blood Gas Allen Test Pos; Blood Gas Sample Site Radial, left; Blood Gas Sample Type Arterial; Oxygen Device NC; PO2 ABG 92.8 mmHg (80.0-100.0)
[2021-09-07] MEDS: remdesivir 100 MG in sodium chloride 0.9% (100 ml) 100 ML IV (05:23)
[2021-09-07] MEDS: levothyroxine 25 mcg Tablet PO (05:24)
[2021-09-07] MEDS: oxyCODONE 5 mg IR Tab/Cap PO ×2 (05:24→13:55)
[2021-09-07 06:41] LABS: Glucose Point of Care 212 mg/dL (70-110)
[2021-09-07 07:26] LABS: Basophils % 0.3 %; Hematocrit 38.6 % (37.0-47.0); Hemoglobin 12.1 g/dL (11.5-15.3); Lymphocytes # 0.5 10^3/uL (0.8-4.8); Lymphocytes % 13.7 %; Mean Corpuscular HGB Conc 31.3 g/dL (30.0-36.0); Mean Corpuscular Hemoglobin 28.7 pg (28.0-34.0); Mean Corpuscular Volume 91.7 fl (81-99); Mean Platelet Volume 11.4 fL (7.4-10.4); Monocytes # 0.6 10^3/uL (0.2-0.9); Monocytes % 15.2 %; Neutrophils # 2.67 10^3/uL (1.8-7.7); Nucleated Red Blood Cells % 0 %; Platelet Count 187 10^3/cmm (130-400); Red Blood Count 4.21 10^6/uL (4.1-5.3); Red Cell Distribution Width 13.3 % (12.1-15.1); White Blood Count 3.9 10^3/uL (4.0-10.0)
[2021-09-07 07:53] LABS: Anion Gap 15.3 (5-19); Blood Urea Nitrogen 18 mg/dL (8-23); C Reactive Protein 103.2 mg/L (0.0-4.9); Calcium 8.8 mg/dL (8.5-10.5); Carbon Dioxide 27 mmol/L (22-29); Chloride 100 mmol/L (98-107); Glucose 199 mg/dL (65-115); Lactate Dehydrogenase 130 U/L (135-214); Osmolality Calculated 293 mOsm/kg (285-295); Potassium 4.3 mmol/L (3.5-5.1); Sodium 138 mmol/L (136-145)
[2021-09-07 07:54] LABS: Creatinine Clr Calc Pharmacy 55.8077
[2021-09-07] MEDS: calcium carbonate 500 mg Chew Tablet 1000 MG PO (09:07)
[2021-09-07] MEDS: insulin lispro 100 unit/1 mL SUBCUT ×2 (09:07→13:05)
[2021-09-07] MEDS: magnesium oxide 400 mg tablet PO (09:07)
[2021-09-07] MEDS: sennosides-docusate Tablet 1 TAB PO (09:07)
[2021-09-07] MEDS: iron polysaccharide complex 150 mg Capsule PO (09:08)
[2021-09-07] MEDS: dexamethasone 10 mg/mL INJ 6 MG IVP (09:08)
[2021-09-07] MEDS: methylphenidate 10 mg Tablet 5 MG PO (09:08)
[2021-09-07] MEDS: multivitamin therapeutic Tablet 1 TAB PO (09:08)
[2021-09-07] MEDS: cholecalciferol (vitamin D3) 1,000 unit Tablet 1000 UNIT PO (09:08)
[2021-09-07] MEDS: mupirocin oint 22 gm 1 APPLIC NASAL (09:22)
[2021-09-07] MEDS: chlorhexidine gluconate 0.12% Btl 473 mL 30 ML MUCOUS MEM (09:22)
--- NOTE | 2021-09-07 10:43 | PC.SOCIAL ---
IMM Update Pg. 2 of IMM updated and reviewed with patient. Initialled, dated, timed, and placed in chart.
--- NOTE | 2021-09-07 11:28 | PM.DCS ---
Discharge Providers Date of Admission: 09/02/21 12:40 Date of Discharge: September 07, 2021 Attending Provider at Admission: Madeline Trammell MD Attending Provider at Discharge: Madeline Trammell MD Primary Care Provider: Karen Hughes MD Diagnoses at Discharge Discharge Diagnosis (1) Subcapital fracture of left hip: Status: Acute Qualifiers: Encounter type: initial encounter Fracture type: closed Qualified Code(s): S72.012A - Unspecified intracapsular fracture of left femur, initial encounter for closed fracture (2) History of left hip hemiarthroplasty: Status: Acute Permanent problem details: Date of procedure: September 03, 2021 Procedure Done: Left bipolar hip arthroplasty Implants: The [employer] hip system with the following implants: The Accolade II 127 degree neck angle size 4 femoral stem with a V40 LFIT femoral head size 28 mm x +4 mm and a universal head component bipolar size 48 mm outer diameter by 28 mm inner diameter. Reason for Visit Reason for Visit: BROKEN HIP SENT BY PCP Hospital Course Hospital Course History of Present Illness Cecelia Andrew is a 81 year old female who lives alone, her 3 years ago, currently grandson is living with her, she twisted her ankle on 08/18 and fell, she was diagnosed with left femoral head fracture. She was scheduled for surgery today however she ate her surgery has been postponed to 09/03. Hospitalist service requested to admit her. Patient is stating that she does not take insulin for her diabetes however hemoglobin A1c is around 11, she denies any history of coronary artery disease, CHF, PR, stroke. For her hyperglycemia I will start her on normal saline We will give her 10 units of Lantus right now and keep her on sliding scale Hold lisinopril No preoperative cardiac work-up needed At the time of my evaluation she was saturating well on room air, awake and alert, hemodynamically stable, she does seem to have memory impairment does not know much detail about her fall in July Hosp course Patient was admitted on 09/02, went for the hip surgery on 09/[address] Jones left bipolar hip arthroplasty, no perioperative complications however in postoperative time she was requiring 2 L of oxygen, she became more confused, COVID test was repeated which returned positive, Ritalin trial was done which showed improvement in her mentation and energy. Her CT head was repeated for worsening confusion and it showed remote lacunar infarct she probably has underlying vascular dementia as well which was discussed with her family/grandson. Grandson moved from [place] and planning to take care of her. On 09/07 she will go to [facility]. She failed voiding trial, she will be discharged with a Vanessa catheter. Hemoglobin stable, she remained afebrile. She is very reluctant to work with physical therapy, kindly review their notes for further details. Considering COVID-19 infection and recent hip surgery I will discharge on Eliquis 2.5 twice daily DVT prophylaxis. Please note she has been diagnosed with uncontrolled type 2 diabetes hemoglobin A1c above 10, I will discharge on Lantus 15 units and sliding scale along metformin. Physical Exam Narrative: EXAM NARRATIVE: No new focal deficit No signs of meningitis Breathing well on 2 L nasal cannula no acute respiratory distress no rhonchi wheezing or crackles Abdomen soft Patient is complaining of hip pain No vascular compromise of lower extremities awake alert very pleasant did FaceTime her Grandson Urinary Catheter Management^: Vanessa: Cath Placed During This Visit: yes, but has since been removed by the nurse Reason for Continuing Indwelling Catheter: Required Immobilization for Trauma or Surgery or Anesthesia Urinary Catheter Date of Insertion: 09/05/21 Urinary Catheter Time of Insertion: 00:10 Date Urinary Catheter Removed: 09/04/21 Time Urinary Catheter Discontinued: 06:14 Discharge Data Data Completed and Pending: Completed Studies During Hospitalization Category Date Time Status CT head wo con* 7 0450 Routine Cat Scan 09/06/21 07:00 Completed XR pelvis 1-2V* 7 4070 Routine Exams 09/03/21 15:57 Completed CV. echo complete * [id number] Stat Ultrasound 09/02/21 12:37 Completed Labs from last 24 hours 09/07/21 09/07/21 09/07/21 07:03 07:03 06:36 WBC 3.9 L RBC 4.21 Hgb 12.1 Hct 38.6 MCV 91.7 MCH 28.7 MCHC 31.3 RDW 13.3 Plt Count 187 MPV 11.4 H Neut % (Auto) 69.0 Lymph % (Auto) 13.7 Carroll % (Auto) 15.2 Eos % (Auto) 0.0 Baso % (Auto) 0.3 Neut # (Auto) 2.67 Lymph # (Auto) 0.5 L Carroll # (Auto) 0.6 Eos # (Auto) 0.0 Baso # (Auto) 0.0 Nucleated RBC % (a uto) 0 Nucleated RBCs # 0.0 Specimen Type Sample Site ABG pH ABG pCO2 ABG pO2 ABG HCO3 ABG Base Excess Masoud Test Hematocrit O2 Delivery Device O2 Liters/Min Bridge Ironworker Helper ID Sodium 138 Potassium 4.3 Chloride 100 Carbon Dioxide 27 Anion Gap 15.3 BUN 18 Creatinine 0.4 L GFR Calculation Not Reportable Glucose 199 H POC Glucose 212 H Calculated Osmolal ity 293 Calcium 8.8 Lactate Dehydrogen ase 130 L C-Reactive Protein 103.2 H 09/07/21 09/06/21 09/06/21 03:21 21:26 16:39 WBC RBC Hgb Hct MCV MCH MCHC RDW Plt Count MPV Neut % (Auto) Lymph % (Auto) Carroll % (Auto) Eos % (Auto) Baso % (Auto) Neut # (Auto) Lymph # (Auto) Carroll # (Auto) Eos # (Auto) Baso # (Auto) Nucleated RBC % (a uto) Nucleated RBCs # Specimen Type Arterial Sample Site Radial, left ABG pH 7.42 ABG pCO2 44.6 ABG pO2 92.8 ABG HCO3 29.0 H ABG Base Excess 3.9 H Masoud Test Pos Hematocrit 38.6 O2 Delivery Device Nc O2 Liters/Min 2.0 Bridge Ironworker Helper ID Buttr Sodium Potassium Chloride Carbon Dioxide Anion Gap BUN Creatinine GFR Calculation Glucose POC Glucose 238 H 214 H Calculated Osmolal ity Calcium Lactate Dehydrogen ase C-Reactive Protein Vitals: Last Vital Signs Temp 98.2 F 09/07/21 08:00 Pulse 70 09/07/21 08:00 Resp 18 09/07/21 08:00 BP 141/77 09/07/21 08:00 Pulse Ox 99 09/07/21 08:00 Discharge Plan Discharge Patient Disposition: Xfer SNF Condition: Stable Prescriptions: New Lantus Solostar U-100 Insulin 100 unit/mL (3 mL) insulin pen 15 unit SUBCUT QPM Qty: 15 RF: 3 Humalog KwikPen Insulin 100 unit/mL insulin pen See Rx Instructions .ROUTE .COMPLEX Qty: 15 RF: 3 metformin 1,000 mg tablet 1,000 mg PO DAILY Qty: 30 RF: 3 tramadol 100 mg tablet 50 mg PO Q4H PRN (Reason: pain) Qty: 20 RF: 0 Senna-S 8.6-50 mg tablet 1 tab-cap PO DAILY Qty: 60 RF: 0 Eliquis 2.5 mg tablet 2.5 mg PO BID Qty: 90 RF: 0 albuterol sulfate 90 mcg/actuation HFA aerosol inhaler 2 inh inhalation Q6H Qty: 8.5 RF: 1 Ritalin 5 mg tablet 5 mg PO DAILY Qty: 3 RF: 0 Continued vitamin E 1,000 unit Capsule 2,000 unit PO DAILY RF: 0 cod liver oil Capsule 2 cap PO DAILY RF: 0 thiamine HCl (vitamin B1) [Vitamin B-1] 100 mg Tablet 100 mg PO DAILY RF: 0 coenzyme Q10 [CoQ-10] 30 mg Capsule 30 mg PO DAILY RF: 0 cholecalciferol (vitamin D3) [Vitamin D3] 5,000 unit Tablet 5,000 unit PO EVERY OTHER DAY RF: 0 Calcium Magnesium Potassium Ta 1 tab PO DAILY RF: 0 levothyroxine [Euthyrox] 25 mcg tablet 25 mcg PO QAM RF: 0 lisinopril 10 mg tablet 10 mg PO DAILY RF: 0 Discontinued tramadol 50 mg tablet 50 mg PO BID PRN (Reason: pain) Qty: 20 RF: 0 digestive enzymes Capsule 1 cap PO QAM RF: 0 5-hydroxytryptophan (5-HTP) [5-HTP] 100 mg Capsule 100 mg PO BEDTIME RF: 0 olive leaf extract 250 mg Capsule 500 mg PO DAILY RF: 0 ibuprofen 200 mg Tablet 800 mg PO Q6H PRN (Reason: Pain) RF: 0 multivitamin Tablet 1 tab PO DAILY RF: 0 No Action sertraline 100 mg tablet See Rx Instructions .ROUTE .COMPLEX Qty: 30 RF: 0 Discharge Orders: Discharge Order (Routine); Ordered 09/07/21 Ordered By: Madeline Trammell Other Ambulatory Orders: DME: Oxygen (Order) Location: None Selected Ordered By: Madeline Trammell Referrals: [facility] [Outside] Polly Garay MD [Physician] - 09/29/21 2:30 pm (Please schedule for 3 weeks.) Karen Hughes MD [Primary Care Provider] - Discharge Activity: Limit activity as instructed, Use walker/crutches as instructed and As per PT/OT instructions Patient Instructions: Tramadol (By mouth), Apixaban (By mouth), Total Hip Replacement (GEN) Activity Restrictions/Additional Instructions: Posterior hip precautions. Weightbearing as tolerated. Strengthening with gait training to left hip. When dressing peels off, you may change it as needed. It can be maintained in place unless it becomes soiled or comes off on its own. He had new onset diabetes for which she will need Lantus and low-dose sliding scale along metformin For confusion and weakness please only take Ritalin for next 4 days and then discontinue if blood pressure stays high you can discontinue Ritalin With COVID and hip surgery you will get Eliquis DVT prophylaxis Patient returning on 2L of oxygen. May titrate O2 to maintain oxygen saturation above 90%. Please maintain vanessa catheter until physician follow-up for removal. LOW DOSE Insulin sliding scale Blood sugar units 60 ? 110 No insulin 111 ? 150 2 units 151 ? 200 4 units 201 ? 250 6 units 251 ? 300 8 units 301 ? 350 10 units >350 12 units (call physician Discharge Attestations Time Spent in Discharge Care*: less than 30 min Quality Metrics Clinical Quality Measures During this hospital stay, did patient experience: None Coding Level of Care Code Acute [facility] note Diagnoses Subcapital fracture of left hip S72.012A Encounter type: initial encounter Fracture type: closed History of left hip hemiarthroplasty Z96.642
[2021-09-07 11:59] LABS: Glucose Point of Care 265 mg/dL (70-110)
== END 2021-09-07 14:30 | disposition skilled nursing facility (03) | DRG 521 ==
LOC: ER 12:33 → MEDSURG 14:05
PROVIDERS: Specialist; Admitting Provider Internal Medicine; Emergency Provider Emergency Medicine; PCP Family Medicine; Visit Provider Internal Medicine
PROC: 0SRS0JA Replacement of Left Hip Joint, Femoral Surface with Synthetic Substitute, Uncemented, Open Approach (ICD-10-PCS; CPT 27125; principal; 2021-09-03 11:30)
DX: S72.012A Unspecified intracapsular fracture of left femur, initial encounter for closed fracture (principal); U07.1 COVID-19; W18.39XA Other fall on same level, initial encounter; E11.65 Type 2 diabetes mellitus with hyperglycemia; G31.84 Mild cognitive impairment of uncertain or unknown etiology; E83.42 Hypomagnesemia; R06.89 Other abnormalities of breathing; E66.01 Morbid (severe) obesity due to excess calories; F41.9 Anxiety disorder, unspecified; E78.5 Hyperlipidemia, unspecified; I10 Essential (primary) hypertension; E03.9 Hypothyroidism, unspecified; R29.6 Repeated falls; Z68.36 Body mass index [BMI] 36.0-36.9, adult; Z74.2 Need for assistance at home and no other household member able to render care; Z96.642 Presence of left artificial hip joint; Z86.73 Personal history of transient ischemic attack (TIA), and cerebral infarction without residual deficits
CPT/HCPCS: 36415; 36416; 36600; 51702; 70450; 72170; 73502; 73700; 80048; 80053; 80061; 81001; 81003; 82306; 82803; 82962; 83036; 83615; 83721; 83735; 84443; 85014; 85018; 85025; 85610; 85730; 86140; 87086; 87635; 93005; 93306; 96365; 96372; 96374; 97110; 97161; 97167; 97530; 97535; 99285; C1776; J0690; J0696; J1100; J1170; J1650; J1815 ×2; J2405; J2704; J2710; J3010; J3370; J3475; J3490; J7030

== ENCOUNTER 2021-09-12 14:54 | Inpatient (IN) | payer MEDICARE, BC, SELFPAY ==
--- NOTE | 2021-09-12 14:55 | W.ED.GENADLT ---
HPI - General Adult General: Chief complaint: ER Hold Stated complaint: LETHARGY Time Seen by Provider: 09/12/21 14:55 Source: patient, family and old records reviewed Mode of arrival: EMS Limitations: altered mental status History of Present Illness: HPI narrative: Ms. Andrew is an 81-year-old lady with complex recent past medical history of hip fracture and baseline medical problems of hypertension, hyperlipidemia, thyroid disorder, diabetes who presents emergency department from longterm for altered mental status. She was discharged to the longterm on 09/07 after total hip arthroplasty secondary to hip fracture apparently she was positive for COVID approximately 10 days ago. Upon discharge from the hospital she had mild slow decline however precipitously worsened today with altered mental status, gurgling, and shortness of breath. Additionally she was flushed and hot to the touch. Upon arrival the patient's family member provides most history as the patient appears altered mental status. No reported falls or focal neurologic deficits. History is otherwise limited by patient's current mental state. Onset (ago): hour(s) Severity: severe Review of Systems General: Reports: ROS unobtainable due to mental status PFSH ED PFSH: Medical History (Updated 09/17/21 @ 20:51 by Rashid Caal MD) Acute hip pain Acute metabolic encephalopathy Anxiety Claustrophobia COVID Depression with anxiety Diabetes Diabetes mellitus without complication DJD (degenerative joint disease) Dyslipidemia Essential hypertension Frequent falls Hypertension Hypothyroid Hypothyroidism Need for home health care Obesity Type 2 diabetes mellitus UTI (urinary tract infection) Surgical History (Updated 09/16/21 @ 00:01 by ) History of cholecystectomy History of left hip hemiarthroplasty Date of procedure: September 03, 2021 Procedure Done: Left bipolar hip arthroplasty Implants: The [place] hip system with the following implants: The Accolade II 127 degree neck angle size 4 femoral stem with a V40 LFIT femoral head size 28 mm x +4 mm and a universal head component bipolar size 48 mm outer diameter by 28 mm inner diameter. History of lumpectomy Social History Alcohol intake: never Lives independently: Yes Household members: none Marital status: / service: No Current occupational status: retired History of recent travel: No Current gender identity: Female Special iza needs: No Physical Exam Const: GENERAL APPEARANCE: well developed, ill appearing and other (Somnolent) NUTRITIONAL APPEARANCE: obese ORIENTATION/CONSCIOUSNESS: Yes Other orientation findings (Somnolent) HENMT: COMMON NORMALS: normocephalic and atraumatic HEAD & SCALP: normocephalic and atraumatic OTHER: Dry mucous membranes Eye: COMMON NORMALS: Equal, round and reactive pupils present and conjunctivae normal CONJUNCTIVA: Yes conjunctivae normal SCLERA: sclerae normal PUPIL: Yes Equal, round and reactive pupils present Neck/C-Spine: COMMON NORMALS: supple GENERAL: Yes trachea midline Resp: COMMON NORMALS: normal respiratory effort EFFORT & INSPECTION: Yes able to speak in complete sentences Cardio: COMMON NORMALS: regular rhythm RATE: tachycardic RHYTHM: regular rhythm GI: PALPATION: Yes Firmness to palpation present (GI), Yes Tenderness to palpation present (GI), No Guarding due to palpation present (GI) and No Rigid due to palpation Extremity: GENERAL: Yes normal exam except as noted and Yes edema OTHER: Surgical incision dressing appears clean and dry Neuro: COMMON NORMALS: moves all extremities SENSORIUM/ORIENTATION: Yes Orientation impaired and Yes somnolent Procedures Rectal Disimpaction Indication: fecal impaction Procedural Sedation: No Sedation/Analgesia: none Technique: manual disimpaction with gloved finger Result: significant stool output Patient Tolerated Procedure: well Complications: none Course ED course: - Patient was seen and evaluated by me at bedside - Patient placed on cardiac monitors, IV access obtained - Initial evaluation notable for ill appearance, somnolent, dry mucous membranes. Nonfocal neurologic exam -Fluids ordered. - Labs notable for no leukocytosis, normal hemoglobin. Metabolic panel with low bicarb and increased anion gap as well as elevated creatinine above baseline. Glucose is elevated. Based on provided clinical history the exact etiology of metabolic derangement is somewhat unclear etiology I will plan to provide fluid resuscitation first and then reevaluate for consideration of initiation of insulin. Clinical history is not consistent with DKA. Procalcitonin negative. - Imaging notable for no evidence of intracranial hemorrhage or other obvious cause to explain altered mental status. Given degree of illness and recent hospitalization CT imaging is warranted. No evidence of PE, groundglass opacities persist. CT abdomen pelvis only evidence of fecal impaction and bladder distention. I instructed the nursing staff to troubleshoot catheter. - With dairy chemist present I performed fecal disimpaction. We carefully maintain hip alignment and support during roll and procedure. Stool is soft without evidence of blood. - Upon serial reexamination after treatment the patient was similar - Based on patient history, evaluation, labs, and imaging as interpreted the most likely cause of the patient's condition is acute metabolic encephalopathy with evidence of dehydration - The results of ED evaluation were discussed with the patient including plan for admission due to requirement for level of care not available if discharged to prevent significant worsening/deterioration. - Discussed case with hospitalist who will come evaluate the patient for consideration of admission. - Patient care discussed with overnight ED physician pending hospitalist evaluation for disposition. Note: Click bubbles or prepopulated hobbs in note writing are used for assistance with data collection and billing and are inherently more limited than narrative and other text portions of this note. Please use narrative for additional clinical history and defer to narrative/free test for any case of contradictory information. If information appears in only free text or click bubble it should be considered present or absent as reported. Please contact note blog writer for clarifications of clinical information or contradictory information. MDM is a brief summary, contradictory or erroneous seeming information should be clarified and full note should be reviewed. Vital Signs: Vital signs: Vital Signs Temperature 97.8 F 09/15/21 08:53 Pulse Rate 91 09/15/21 08:53 Respiratory Rate 16 09/15/21 08:53 Blood Pressure 149/76 09/15/21 08:53 Pulse Oximetry 96 09/15/21 08:53 MDM - General Adult MDM Narrative Medical decision making narrative: 81-year-old lady with history of known Covid and recent history of hospitalization with surgical repair left hip fracture presenting with progressive worsening and now significant altered mental status and increased illness appearance. Patient somnolent with nonfocal neurologic exam. Evidence of dehydration on laboratory imaging. Fluid resuscitation ordered. Patient admitted for suspected acute metabolic encephalopathy. Medical Records Attestation: I reviewed the patient's medical records. Lab Data Attestation: I reviewed the patient's lab results. Result diagrams: 09/15/21 05:21 09/15/21 05:21 Labs: Lab Results 09/12/21 09/12/21 09/12/21 15:20 15:20 15:20 WBC 9.8 10^3/uL 10^3/uL (4.0-10.0) RBC 4.46 10^6/uL 10^6/uL (4.1-5.3) Hgb 12.9 g/dL g/dL (11.5-15.3) Hct 40.6 % % (37.0-47.0) MCV 91.0 fl fl (81-99) MCH 28.9 pg pg (28.0-34.0) MCHC 31.8 g/dL g/dL (30.0-36.0) RDW 13.7 % % (12.1-15.1) Plt Count 248 10^3/cmm 10^3/cmm (130-400) MPV 12.4 fL H fL (7.4-10.4) Neut % (Auto) 82.8 % % Lymph % (Auto) 7.5 % % Bosque % (Auto) 9.5 % % Eos % (Auto) 0.0 % % Baso % (Auto) 0.2 % % Neut # (Auto) 7.64 10^3/uL 10^3/uL (1.8-7.7) Lymph # (Auto) 0.7 10^3/uL L 10^3/uL (0.8-4.8) Bosque # (Auto) 0.9 10^3/uL 10^3/uL (0.2-0.9) Eos # (Auto) 0.0 10^3/uL 10^3/uL (0.0-0.8) Baso # (Auto) 0.0 10^3/uL 10^3/uL (0.0-0.1) Nucleated RBC % (auto) 0 % % Nucleated RBCs # 0.0 /100WBC /100WBC Specimen Type Sample Site ABG pH ABG pCO2 ABG pO2 ABG HCO3 ABG Base Excess Masoud Test Hematocrit O2 Delivery Device O2 Liters/Min Food And Nutrition Professor ID Sodium 143 mmol/L mmol/L (136-145) Potassium 4.5 mmol/L mmol/L (3.5-5.1) Chloride 103 mmol/L mmol/L (98-107) Carbon Dioxide 20 mmol/L L mmol/L (22-29) Anion Gap 24.5 H (5-19) BUN 40 mg/dL H mg/dL (8-23) Creatinine 1.0 mg/dL H mg/dL (0.5-0.9) GFR Calculation Not Reportable Glucose 334 mg/dL H mg/dL (65-115) POC Glucose Calculated Osmolality 319 mOsm/kg H mOsm/kg (285-295) Calcium 8.1 mg/dL L mg/dL (8.5-10.5) Magnesium 2.4 mg/dL H mg/dL (1.7-2.3) Total Bilirubin 0.3 mg/dL mg/dL (0.15-1.2) AST 23 U/L U/L (0-32) ALT 11 U/L U/L (0-33) Alkaline Phosphatase 75 IU/L IU/L (35-105) Troponin T Baseline 19 ng/L H ng/L (0-10) Troponin T 120 Minute Delta Troponin T Troponin T Hi Sens 6Hr Troponin T Hi Sens 6Hr Delta C-Reactive Protein 105.4 mg/L H mg/L (0.0-4.9) NT-Pro-B Natriuret Pep 456 pg/mL H pg/mL (0-450) Total Protein 5.3 g/dL L g/dL (6.6-8.7) Albumin 3.2 g/dL L g/dL (3.5-5.2) Globulin 2.1 g/dL g/dL (1.3-4.6) Procalcitonin 0.20 ng/mL ng/mL (0-0.5) TSH 1.12 uIU/mL uIU/mL (0.27-4.20) Urine Color Urine Appearance Urine pH Ur Specific Wirt Urine Protein Urine Glucose (UA) Urine Ketones Urine Blood Urine Nitrate Urine Bilirubin Urine Urobilinogen Ur Leukocyte Esterase Urine RBC Urine WBC Ur Squamous Epith Cells Amorphous Sediment Urine Bacteria Urine Yeast Serum Ketones 09/12/21 09/12/21 09/12/21 15:20 15:20 15:58 WBC RBC Hgb Hct MCV MCH MCHC RDW Plt Count MPV Neut % (Auto) Lymph % (Auto) Bosque % (Auto) Eos % (Auto) Baso % (Auto) Neut # (Auto) Lymph # (Auto) Bosque # (Auto) Eos # (Auto) Baso # (Auto) Nucleated RBC % (auto) Nucleated RBCs # Specimen Type Sample Site ABG pH ABG pCO2 ABG pO2 ABG HCO3 ABG Base Excess Masoud Test Hematocrit O2 Delivery Device O2 Liters/Min Food And Nutrition Professor ID Sodium Potassium Chloride Carbon Dioxide Anion Gap BUN Creatinine GFR Calculation Glucose POC Glucose 343 mg/dL H mg/dL (70-110) Calculated Osmolality Calcium Magnesium Total Bilirubin AST ALT Alkaline Phosphatase Troponin T Baseline Troponin T 120 Minute Delta Troponin T Troponin T Hi Sens 6Hr Troponin T Hi Sens 6Hr Delta C-Reactive Protein NT-Pro-B Natriuret Pep Total Protein Albumin Globulin Procalcitonin TSH Urine Color Dark yellow (Yellow) Urine Appearance Cloudy (CLEAR) Urine pH 5 (5-7) Ur Specific Wirt 1.020 (1.005-1.030) Urine Protein Trace (Negative) Urine Glucose (UA) Norm (Normal) Urine Ketones 1+ H (Negative) Urine Blood 3+ H (Negative) Urine Nitrate Negative (Negative) Urine Bilirubin Neg (Negative) Urine Urobilinogen Norm mg/dL mg/dL (Negative) Ur Leukocyte Esterase 2+ H (Negative) Urine RBC 5-10 /hpf H /hpf (0-2) Urine WBC 10-15 /hpf H /hpf (0-5) Ur Squamous Epith Cells None /hpf /hpf (0-5) Amorphous Sediment Not Reportable Urine Bacteria Trace /hpf /hpf (NONE) Urine Yeast 4+ /hpf H /hpf Serum Ketones Positive H (Negative) 09/12/21 09/12/21 09/12/21 16:20 17:20 21:20 WBC RBC Hgb Hct MCV MCH MCHC RDW Plt Count MPV Neut % (Auto) Lymph % (Auto) Bosque % (Auto) Eos % (Auto) Baso % (Auto) Neut # (Auto) Lymph # (Auto) Bosque # (Auto) Eos # (Auto) Baso # (Auto) Nucleated RBC % (auto) Nucleated RBCs # Specimen Type Arterial Sample Site Radial, right ABG pH 7.39 (7.35-7.45) ABG pCO2 43.3 mmHg mmHg (35-45) ABG pO2 95.7 mmHg mmHg (80.0-100.0) ABG HCO3 26.3 mmol/L H mmol/L (22-26) ABG Base Excess 1.0 mmol/L mmol/L (-2.0-2.0) Masoud Test Pos Hematocrit 37.8 % % (37-47) O2 Delivery Device Nc O2 Liters/Min 2.5 % % Food And Nutrition Professor ID Tung Sodium Potassium Chloride Carbon Dioxide Anion Gap BUN Creatinine GFR Calculation Glucose POC Glucose Calculated Osmolality Calcium Magnesium Total Bilirubin AST ALT Alkaline Phosphatase Troponin T Baseline Troponin T 120 Minute 16.49 ng/L H ng/L (0-10) Delta Troponin T -2.51 ABS# L ABS# (0-10) Troponin T Hi Sens 6Hr 17.64 ng/L H ng/L (0-10) Troponin T Hi Sens 6Hr Delta -1.36 ng/L L ng/L (0-12) C-Reactive Protein NT-Pro-B Natriuret Pep Total Protein Albumin Globulin Procalcitonin TSH Urine Color Urine Appearance Urine pH Ur Specific Wirt Urine Protein Urine Glucose (UA) Urine Ketones Urine Blood Urine Nitrate Urine Bilirubin Urine Urobilinogen Ur Leukocyte Esterase Urine RBC Urine WBC Ur Squamous Epith Cells Amorphous Sediment Urine Bacteria Urine Yeast Serum Ketones 09/12/21 23:18 WBC RBC Hgb Hct MCV MCH MCHC RDW Plt Count MPV Neut % (Auto) Lymph % (Auto) Bosque % (Auto) Eos % (Auto) Baso % (Auto) Neut # (Auto) Lymph # (Auto) Bos[place] # (Auto) Eos # (Auto) Baso # (Auto) Nucleated RBC % (auto) Nucleated RBCs # Specimen Type Sample Site ABG pH ABG pCO2 ABG pO2 ABG HCO3 ABG Base Excess Masoud Test Hematocrit O2 Delivery Device O2 Liters/Min Food And Nutrition Professor ID Sodium Potassium Chloride Carbon Dioxide Anion Gap BUN Creatinine GFR Calculation Glucose POC Glucose 252 mg/dL H mg/dL (70-110) Calculated Osmolality Calcium Magnesium Total Bilirubin AST ALT Alkaline Phosphatase Troponin T Baseline Troponin T 120 Minute Delta Troponin T Troponin T Hi Sens 6Hr Troponin T Hi Sens 6Hr Delta C-Reactive Protein NT-Pro-B Natriuret Pep Total Protein Albumin Globulin Procalcitonin TSH Urine Color Urine Appearance Urine pH Ur Specific Wirt Urine Protein Urine Glucose (UA) Urine Ketones Urine Blood Urine Nitrate Urine Bilirubin Urine Urobilinogen Ur Leukocyte Esterase Urine RBC Urine WBC Ur Squamous Epith Cells Amorphous Sediment Urine Bacteria Urine Yeast Serum Ketones EKG Data^ EKG 1: Attestation: I personally reviewed and interpreted this EKG as follows: EKG interpretation date: 09/12/21 EKG interpretation time: 16:07 Interpretation: Twelve-lead EKG shows a regular rhythm at a rate of 102. ME interval 137, QRS duration 93, QTc 417. Normal axis. Interpretation: Sinus rhythm. Computer generated interpretation: Chest X-Ray 09/12/21 15:31 IMPRESSION: Ill-defined opacities along the left mid and lower lung suspicious for infiltrates, most likely COVID pneumonia. Head CT 09/12/21 15:31 IMPRESSION: There are senescent changes of the brain as described above. No evidence for large acute ischemic infarction or acute intracranial injury. Chest/Abdomen/Pelvis CT 09/12/21 16:14 IMPRESSION: 1. No grossly visible evidence of pulmonary embolism/pulmonary arterial thrombus. 2. Bilateral, predominantly peripheral, patches of ground-glass interstitial lung disease opacification consistent with active interstitial pneumonitis. Overall constellation of findings would be consistent with Covid-19 pneumonitis. IMPRESSION: 1. Fecal impaction. 2. Liquid stool throughout the remainder of the colonic tract. 3. Distended urinary bladder. Critical Care Time Critical Care Time: Critical Care Time: Yes Total Critical Care Time: 35 Attestation: Due to a high probability of clinically significant, possibly life threatening deterioration, the patient required my highest level of attention and preparedness to intervene emergently and I personally spent this critical care time directly and personally managing the patient. This critical care time included obtaining a history; examining the patient; pulse oximetry; ordering and review of laboratory and imaging studies; arranging urgent treatment with development of a management plan; evaluation of patient's response to treatment; frequent reassessment; and, discussions with other providers as applicable. It was exclusive of separately billable procedures. Discharge Plan Discharge Patient Disposition: Admitted As Inpatient Admit Provider: Alfonso Lara Clinical Impression: Altered mental status, Acute dehydration, Acute metabolic encephalopathy Condition: Stable Discharge Diet: Soft Mechanical Discharge Activity: Increase activity as tolerated Coding Level of Care Code ED Stationary Steam Engineer for Patricag Fwd Exam Comprehensive
[2021-09-12 15:12] VITALS: BP 139/67; PULSE 101; RESP 23; TEMP 36.4; O2SAT 93; BMI 33.3
--- NOTE | 2021-09-12 15:31 | XRR_ITS ---
PROCEDURE INFORMATION: Exam: XR Chest Exam date and time: 09/12/2021 3:31 PM Age: 81 years old Clinical indication: Patient HX: Ams/cough; Additional info: Cough, AMS TECHNIQUE: Imaging protocol: XR of the chest. Views: 1 view. COMPARISON: CR XR chest 2V* [id number] 08/23/2019 1:57 PM FINDINGS: Lungs: Ill-defined opacities along the peripheral left mid and lower lung. Pleural spaces: Unremarkable. No pleural effusion. No pneumothorax. Heart/Mediastinum: Unremarkable. No cardiomegaly. Bones/joints: Visualized osseous structures are intact. XR/XR chest 1V portable [id number] IMPRESSION: Ill-defined opacities along the left mid and lower lung suspicious for infiltrates, most likely COVID pneumonia.
--- NOTE | 2021-09-12 15:31 | CTR_ITS ---
PROCEDURE INFORMATION: Exam: CT Head Without Contrast Exam date and time: 09/12/2021 3:31 PM Age: 81 years old Clinical indication: Altered mental status/memory loss; Confusion or disorientation; Patient HX: AMS / lethargy TECHNIQUE: Imaging protocol: Computed tomography of the head without contrast. Radiation optimization: All CT scans at this facility use at least one of these dose optimization techniques: automated exposure control; mA and/or kV adjustment per patient size (includes targeted exams where dose is matched to clinical indication); or iterative reconstruction. COMPARISON: CT head wo con* [id number] 09/06/2021 8:41 AM RADIATION DOSE METRICS: Total DLP (mGy-cm): 993.58 FINDINGS: Brain: Periventricular and subcortical white matter low densities are present which at this age likely represent microvascular ischemic change. No evidence for large acute ischemic infarction. Please note acute ischemia can be occult by head CT. Cerebral ventricles: No ventriculomegaly. Paranasal sinuses: Visualized sinuses are unremarkable. No fluid levels. Mastoid air cells: Visualized mastoid air cells are well aerated. Vasculature: Calcified plaque is present within the intracranial vasculature. Bones/joints: Unremarkable. No acute fracture. Soft tissues: Unremarkable. CT/CT head wo con* [id number] IMPRESSION: There are senescent changes of the brain as described above. No evidence for large acute ischemic infarction or acute intracranial injury.
--- NOTE | 2021-09-12 15:31 | ECG_ITS ---
[facility] Test Date: 2021-09-12 Pat Name: Cecelia Andrew Department: Room: Gender: Female Incising Machine Operator: : [id number] Requested By: Rashid Caal Order Number: [id number] Joanna MD: Alex Armando M.D. Measurements Intervals [place] Rate: 102 P: 50 DE: 137 QRS: 12 QRSD: 93 T: 13 QT: 358 QTc: 467 Interpretive Statements SINUS TACHYCARDIA MINIMAL ST DEPRESSION [0.025+ mV ST DEPRESSION] ABNORMAL RHYTHM ECG INTERPRETATION BASED ON A DEFAULT AGE OF 40 YEARS Compared to ECG 09/02/2021 13:13:51 ST (T wave) deviation now present Sinus rhythm no longer present Electronically Signed On 09-13-2021 23:51:05 DIE DRAWING CHECKER by Alex Armando M.D. [id number] f
[2021-09-12 15:39] LABS: Basophils % 0.2 %; Hematocrit 40.6 % (37.0-47.0); Hemoglobin 12.9 g/dL (11.5-15.3); Lymphocytes # 0.7 10^3/uL (0.8-4.8); Lymphocytes % 7.5 %; Mean Corpuscular HGB Conc 31.8 g/dL (30.0-36.0); Mean Corpuscular Hemoglobin 28.9 pg (28.0-34.0); Mean Platelet Volume 12.4 fL (7.4-10.4); Monocytes # 0.9 10^3/uL (0.2-0.9); Monocytes % 9.5 %; Neutrophils # 7.64 10^3/uL (1.8-7.7); Nucleated Red Blood Cells % 0 %; Platelet Count 248 10^3/cmm (130-400); Red Blood Count 4.46 10^6/uL (4.1-5.3); Red Cell Distribution Width 13.7 % (12.1-15.1); White Blood Count 9.8 10^3/uL (4.0-10.0)
[2021-09-12 15:51] LABS: Neutrophils % 82.8 %; Slide Review Slide Review Perform
[2021-09-12 15:52] LABS: Troponin(5th) Baseline 19 ng/L (0-10)
[2021-09-12 16:01] LABS: NT Pro B Type Natriuretic Pept 456 pg/mL (0-450)
[2021-09-12 16:05] LABS: Urine Appearance Cloudy (CLEAR); Urine Color Dark Yellow (Yellow)
[2021-09-12 16:06] LABS: Add Urine Culture? Yes; Add Urine Microscopic? YES; Bacteria Urine TRACE /hpf; Bilirubin Urine Neg (Negative); Blood Urine 3+ (Negative); Glucose Urine UA Norm (Normal); Ketones Urine 1+ (Negative); Leukocyte Esterase Urine 2+ (Negative); Nitrate Urine Negative (Negative); Protein Urine Trace (Negative); Urobilinogen Urine Norm (Negative); pH Urine 5 (5-7)
[2021-09-12] MEDS: sodium chloride 0.9% 1,000 ML 999 ML IV ×2 (16:07→17:42)
[2021-09-12 16:10] LABS: Glucose Point of Care 343 mg/dL (70-110)
--- NOTE | 2021-09-12 16:14 | CTR_ITS ---
PROCEDURE INFORMATION: Exam: CTA Chest With Contrast Exam date and time: 09/12/2021 4:14 PM Age: 81 years old Clinical indication: Abdominal pain; Generalized; Chest pressure; Prior surgery; Surgery date: <1 month; Surgery type: Gb, L jose; Patient HX: SOB, abd pain; Additional info: Tachypnea, hypoxemia, recent surg, abd pain TECHNIQUE: Imaging protocol: Computed tomographic angiography of the chest with contrast. 3D rendering (Not supervised by radiologist): MIP and/or 3D reconstructed images were created by the technologist. Total images: 1103 Radiation optimization: All CT scans at this facility use at least one of these dose optimization techniques: automated exposure control; mA and/or kV adjustment per patient size (includes targeted exams where dose is matched to clinical indication); or iterative reconstruction. Contrast material: VISI 320; Contrast volume: 95 ml; Contrast route: INTRAVENOUS (IV); COMPARISON: CR (CHEST, ) 09/12/2021 3:45 PM RADIATION DOSE METRICS: Total DLP (mGy-cm): 3044.87 FINDINGS: Pulmonary arteries: No grossly visible evidence of pulmonary embolism/pulmonary arterial thrombus. Aorta: The thoracic aorta is nonaneurysmal. No visible intimal flap or dissection. Mild arteriosclerosis. Lungs: Bilateral, predominantly peripheral, patches of ground-glass interstitial lung disease opacification consistent with active interstitial pneumonitis. Overall constellation of findings would be consistent with Covid-19 pneumonitis. Pleural spaces: No pneumothorax. No pleural effusion. Heart: Cardiac size upper limits of normal. No visible pericardial effusion. Mild coronary artery disease. Lymph nodes: No definitive evidence of active mediastinal or hilar lymphadenopathy. Bones/joints: No visible acute osseous abnormality. Osteopenia/osteoporosis. Soft tissues: Obesity. Other findings: Increased quantum mottle artifact which degrades image quality and detail assessment. Respiratory motion artifact. PROCEDURE INFORMATION: Exam: CT Abdomen And Pelvis With Contrast Exam date and time: 09/12/2021 4:14 PM Age: 81 years old Clinical indication: Abdominal pain; Generalized; Chest pressure; Prior surgery; Surgery date: <1 month; Surgery type: Gb, L jose; Patient HX: SOB, abd pain; Additional info: Tachypnea, hypoxemia, recent surg, abd pain TECHNIQUE: Imaging protocol: Computed tomography of the abdomen and pelvis with contrast. Radiation optimization: All CT scans at this facility use at least one of these dose optimization techniques: automated exposure control; mA and/or kV adjustment per patient size (includes targeted exams where dose is matched to clinical indication); or iterative reconstruction. Contrast material: VISI 320; Contrast volume: 95 ml; Contrast route: INTRAVENOUS (IV); COMPARISON: 1. CT abdomen pelvis w con* [id number] 11/02/2017 10:29 AM 2. CR (CHEST, ) 09/12/2021 3:45 PM RADIATION DOSE METRICS: Total DLP (mGy-cm): 3044.87 FINDINGS: Liver: No visible hepatic mass. Stable tiny simple hepatic cyst lateral segment right hepatic lobe. Gallbladder and bile ducts: Status post cholecystectomy. Pancreas: Moderate pancreatic atrophy. No visible pancreatic ductal ectasia. Spleen: Spleen unremarkable. Adrenal glands: Adrenal glands unremarkable. Kidneys and ureters: No hydronephrosis or perinephric fluid bilaterally. No visible renal mass. No visible ureterolithiasis. Stomach and bowel: Fecal impaction. Liquid stool throughout the remainder of the colonic tract. Nonobstructive bowel pattern. No visible adynamic or reactive ileus. No visible evidence for significant diverticulosis coli or diverticulitis. Appendix: The appendix is visualized and appears noninflamed. Intraperitoneal space: No visible pneumoperitoneum or intraperitoneal ascites. Vasculature: Portal vein patent. The abdominal aorta is nonaneurysmal. Mild arterial sclerotic disease. Lymph nodes: No pathologically enlarged lymph nodes. Urinary bladder: Distended urinary bladder measuring approximately 17 cm x 11.7 cm x 13 cm period Beltran catheter in place. Reproductive: Unremarkable as visualized for age. Bones/joints: Left total hip prosthesis with extensive metal artifact. No visible acute osseous abnormality. Osteopenia/osteoporosis. Degenerative disc disease L4/L5. Soft tissues: Periumbilical ventral hernia containing fat only. Obesity. Other findings: Increased quantum mottle artifact which degrades image quality and detail assessment. Motion artifact. CT/CT angio chest w abd pel w con IMPRESSION: 1. No grossly visible evidence of pulmonary embolism/pulmonary arterial thrombus. 2. Bilateral, predominantly peripheral, patches of ground-glass interstitial lung disease opacification consistent with active interstitial pneumonitis. Overall constellation of findings would be consistent with Covid-19 pneumonitis. IMPRESSION: 1. Fecal impaction. 2. Liquid stool throughout the remainder of the colonic tract. 3. Distended urinary bladder.
[2021-09-12 16:16] LABS: Ketone (Acetest) Serum Positive (Negative)
[2021-09-12 16:29] LABS: ABG PCO2 43.3 mmHg (35-45); ABG PH Result 7.39 (7.35-7.45); Arterial Blood Gas Hematocrit 37.8 % (37-47); Blood Gas Allen Test Pos; Blood Gas LPM 2.5 %; Blood Gas Sample Site Radial, right; Blood Gas Sample Type Arterial; HCO3 ABG 26.3 mmol/L (22-26); Oxygen Device NC; PO2 ABG 95.7 mmHg (80.0-100.0)
[2021-09-12 16:42] LABS: Alanine Aminotransferase 11 U/L (0-33); Albumin Level 3.2 g/dL (3.5-5.2); Alkaline Phosphatase 75 IU/L (35-105); Anion Gap 24.5 (5-19); Aspartate Amino Transferase 23 U/L (0-32); Blood Urea Nitrogen 40 mg/dL (8-23); C Reactive Protein 105.4 mg/L (0.0-4.9); Calcium 8.1 mg/dL (8.5-10.5); Carbon Dioxide 20 mmol/L (22-29); Chloride 103 mmol/L (98-107); Globulin 2.1 g/dL (1.3-4.6); Glucose 334 mg/dL (65-115); Magnesium 2.4 mg/dL (1.7-2.3); Osmolality Calculated 319 mOsm/kg (285-295); Potassium 4.5 mmol/L (3.5-5.1); Sodium 143 mmol/L (136-145); Thyroid Stimulating Hormone 1.12 uIU/mL (0.27-4.20); Total Bilirubin 0.3 mg/dL (0.15-1.2); Total Protein 5.3 g/dL (6.6-8.7)
[2021-09-12] MEDS: iodixanol 320 mg/mL 100mL Btl IV (17:04)
--- NOTE | 2021-09-12 17:31 | ECG_ITS ---
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 Measurements Intervals Apollo Rate: 86 P: 51 ND: 126 QRS: 30 QRSD: 93 T: 26 QT: 388 QTc: 464 Interpretive Statements SINUS RHYTHM POSSIBLE INFERIOR MYOCARDIAL INFARCTION , PROBABLY OLD [30 ms Q WAVE IN II/aVF] Compared to ECG 09/02/2021 13:13:51 Myocardial infarct finding now present Electronically Signed On 09-12-2021 20:15:40 AUTOMATIC LATHE TENDER by Alex Armando M.D. [id number]
[2021-09-12 17:56] LABS: Troponin 5 2HR 16.49 ng/L (0-10)
[2021-09-12 17:57] LABS: Troponin 5 2HR Delta -2.51 ABS# (0-10)
[2021-09-12] MEDS: lidocaine 2% Urojet 20 mL TOPICAL (19:15)
--- NOTE | 2021-09-12 19:33 | PC.NURSE ---
REPORT GIVEN ANITA AIKEN ASSUMED CARE.
--- NOTE | 2021-09-12 21:31 | ECG_ITS ---
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 Measurements Intervals [place] Rate: 84 P: 48 CT: 132 QRS: 22 QRSD: 98 T: 19 QT: 388 QTc: 460 Interpretive Statements SINUS RHYTHM Nonspecific T wave changes Compared to ECG 09/12/2021 19:20:26 Myocardial infarct finding no longer present Electronically Signed On 09-13-2021 23:58:39 DYNAMITE CARTRIDGE CRIMPER by Alex Armando M.D. [id number]
[2021-09-12 21:50] LABS: Troponin 5 6HR 17.64 ng/L (0-10)
--- NOTE | 2021-09-12 21:57 | P.HP_ITS ---
Providers/Chief Complaint Primary Care Provider: Karen Hughes MD Chief Complaint: LETHARGY History of Present Illness Cecelia Andrew is a 81 year old female with past medical history of hypertension, diabetes, hypothyroidism, recent COVID-19 infection, recent Left bipolar hip arthroplasty, was brought in from the group home for altered mental status, she was discharged to the group home on 08/28 after Left bipolar hip arthropla sty , since discharge to group home has noticed slow decline in her mentation, but today she has significant decline in her mental status. History taking is not possible from the patient as he is altered, making incoherent sounds. History taking has been done from ER chart review. Upon arrival in the ER she was worked up for above-mentioned complaints Pertinent imaging studies: CT head without contrast: No acute intracranial pathology CT chest abdomen and pelvis: Bilateral, predominantly peripheral, patches of ground-glass interstitial lung disease opacification consistent with active interstitial pneumonitis. No pulmonary embolism. CT abdomen and pelvis: Showed fecal impaction, distended bladder , no acute intra abdominal or pelvic pathology. Pertinent labs: EKG: Sinus rhythm WBC 9.8, H&H:12/40, plt : 248 , serum sodium 143 , serum potassium 4.5 , BUN serum creatinine 40/1 , random blood glucose:334, troponin trend without significant delta , proBNP 456, Urinalysis: Appearance cloudy, urine WBC 10-15, urine yeast 4+ , urine RBC 5-10, urine leukocyte esterase 2+ IN The ER after Beltran catheter replacement patient voided 2 L urine. Patient also received 2 L normal saline bolus Review of Systems General: Reports: ROS unobtainable due to medical condition Medications/Allergies Home Medications Medication Instructions Recorded Confirmed Last Taken Type cholecalciferol (vitamin D3) 5,000 unit PO EVERY OTHER DAY 08/23/19 09/12/21 Unknown History [Vitamin D3] cod liver oil 2 cap PO DAILY 08/23/19 09/12/21 Unknown History coenzyme Q10 [CoQ-10] 30 mg PO DAILY 08/23/19 09/12/21 Unknown History thiamine HCl (vitamin B1) [Vitamin 100 mg PO DAILY 08/23/19 09/12/21 Unknown History B-1] vitamin E 2,000 unit PO DAILY 08/23/19 09/12/21 Unknown History Calcium Magnesium Potassium Ta 1 tab PO DAILY 09/02/21 09/12/21 Unknown History levothyroxine [Euthyrox] 25 mcg PO QAM 09/02/21 09/12/21 Unknown History lisinopril 10 mg PO DAILY 09/02/21 09/12/21 Unknown History albuterol sulfate 2 inh INHALATION Q6H #8.5 g 09/07/21 09/12/21 Unknown Rx insulin glargine [Lantus Solostar 15 unit SUBCUT QPM #15 ml 09/07/21 09/12/21 Unknown Rx U-100 Insulin] insulin lispro [Humalog KwikPen See Rx Instructions .ROUTE 09/07/21 09/12/21 Unknown Rx Insulin] .COMPLEX #15 ml metformin 1,000 mg PO DAILY #30 tab 09/07/21 09/12/21 Unknown Rx methylphenidate HCl [Ritalin] 5 mg PO DAILY #3 tab 09/07/21 09/12/21 Unknown Rx sennosides-docusate sodium 1 tab-cap PO DAILY #60 tab 09/07/21 09/12/21 Unknown Rx [Senna-S] tramadol 50 mg PO Q4H PRN #20 tab 09/07/21 09/12/21 Unknown Rx apixaban [Eliquis] 2.5 mg PO BID@08,20 09/12/21 09/12/21 Unknown History sertraline 100 mg PO DAILY 09/12/21 09/12/21 Unknown History Allergies Allergy/AdvReac Type Severity Reaction Status Date / Time Sulfa (Sulfonamide Allergy Unknown Verified 09/02/21 10:12 Antibiotics) fluoxetine AdvReac ADR-Nightma Verified 09/02/21 10:12 re PFSH Acute PFSH: Medical History (Updated 09/12/21 @ 22:00 by Alfonso Lara MD) Acute hip pain Anxiety Claustrophobia Depression with anxiety Diabetes Diabetes mellitus without complication DJD (degenerative joint disease) Dyslipidemia Essential hypertension Frequent falls Hypothyroid Need for home health care Obesity UTI (urinary tract infection) Surgical History History of cholecystectomy History of lumpectomy Social History Alcohol intake: never Lives independently: Yes Household members: none Marital status: / service: No Current occupational status: retired History of recent travel: No Current gender identity: Female Special iza needs: No Vitals/I&O/Wt Last Vital Signs Temp 97.5 F L 09/12/21 15:12 Pulse 101 H 09/12/21 15:12 Resp 23 H 09/12/21 15:12 BP 139/67 09/12/21 15:12 Pulse Ox 93 09/12/21 15:12 Weight last 48 hrs Weight 90.718 kg Physical Exam HENMT: COMMON NORMALS: normocephalic and atraumatic HEAD & SCALP: normocephalic and atraumatic Resp: COMMON NORMALS: clear to auscultation bilaterally EFFORT & INSPECTION: Yes symmetric chest movement AUSCULTATION: clear to auscultation bilaterally Cardio: COMMON NORMALS: regular rate, regular rhythm, S1 normal heart sound present, S2 normal heart sound present, No gallops present (Cardio) and Peripheral pulses 2+ throughout RATE: regular rate RHYTHM: regular rhythm HEART SOUNDS: S1 normal heart sound present and S2 normal heart sound present PERIPHERAL PULSES: Peripheral pulses 2+ throughout OTHER: ESM in aortic area GI: COMMON NORMALS: Normal to inspection, nondistended, normoactive bowel sounds present, Soft to palpation, non-tender, No hepatosplenomegaly present and no masses AUSCULTATION: Yes normoactive bowel sounds PALPATION: Yes Soft to palpation and Yes No hepatosplenomegaly present RECTAL EXAM: deferred Extremity: COMMON NORMALS: no clubbing, cyanosis or edema and no pedal edema Data : 09/12/21 15:20 09/12/21 15:20 Micro: Microbiology 09/12/21 17:20 Blood Culture - Preliminary Blood SPECIMEN COLLECTED 09/12/21 15:20 Blood Culture - Preliminary Blood SPECIMEN COLLECTED A&P Assessment and plan (1) Acute metabolic encephalopathy: Status: Acute (2) UTI (urinary tract infection): Status: Acute (3) Type 2 diabetes mellitus: Status: Acute (4) History of left hip hemiarthroplasty: Status: Acute (5) Hypertension: Status: Acute (6) Hypothyroidism: Status: Acute Additional A&P Information Cecelia Andrew is a 81 year old female with past medical history of hypertension, diabetes, hypothyroidism, recent COVID-19 infection, recent Left bipolar hip arthroplasty, was brought in from the group home for altered mental status. #Acute metabolic encephalopathy: #UTI #Diabetes #Hypertension #Hypothyroidism #Recent history of COVID-19 pneumonia Follow blood culture Urine culture Continue ceftriaxone Continue fluconazole Continue levothyroxine Lantus 15 units subcu at at bedtime Sliding scale insulin Currently n.p.o. DVT prophylaxis: On Lovenox Attestations Medical Necessity Statement*: Patient is to be in hospital for management of acute encephalopathy. Anticipated length of stay greater than 2 midnightS. Coding Level of Care Code Acute Want Ad Receiver for [facility] Fwd Exam Detailed Diagnoses Acute metabolic encephalopathy G93.41 UTI (urinary tract infection) N39.0 Type 2 diabetes mellitus E11.9 History of left hip hemiarthroplasty Z96.642 Hypertension I10 Hypothyroidism E03.9
[2021-09-12 22:27] LABS: Troponin 5 6HR Delta -1.36 ng/L (0-12)
[2021-09-12 22:36] VITALS: PULSE 83; RESP 18; O2SAT 93
[2021-09-12] MEDS: albuterol 8 gm MDI 1 PUFF INHALATION (22:36)
[2021-09-12] MEDS: cefTRIAXone 1,000 MG in sodium chloride 0.9% (plus) 50 ML 100 MG IV (23:08)
[2021-09-12] MEDS: enoxaparin 40 mg/0.4 mL Syringe SUBCUT (23:08)
[2021-09-12] MEDS: insulin glargine 100 units/1 mL 15 UNIT SUBCUT (23:09)
[2021-09-12 23:22] LABS: Glucose Point of Care 252 mg/dL (70-110)
[2021-09-12] MEDS: fluconazole premix 200 MG/100 ML PREMIX 100 MG IV (23:26)
[2021-09-12 23:48] VITALS: BP 175/77; PULSE 85; RESP 16; O2SAT 95
[2021-09-13] VITALS (11 sets, daily range): BP systolic 126–153; BP diastolic 57–83; PULSE 83–91; RESP 15–22; TEMP 36.3–37.9; O2SAT 90–96
[2021-09-13 04:12] LABS: Glucose Point of Care 235 mg/dL (70-110)
[2021-09-13] MEDS: albuterol 8 gm MDI 1 PUFF INHALATION ×2 (05:10→20:51)
[2021-09-13] MEDS: levothyroxine 25 mcg Tablet PO (05:52)
[2021-09-13 07:05] LABS: Blood Urea Nitrogen 30 mg/dL (8-23); Calcium 7.8 mg/dL (8.5-10.5); Carbon Dioxide 25 mmol/L (22-29); Chloride 110 mmol/L (98-107); Glucose 233 mg/dL (65-115); Osmolality Calculated 320 mOsm/kg (285-295); Sodium 148 mmol/L (136-145)
[2021-09-13 07:07] LABS: Basophils % 0.3 %; Eosinophils % 0.4 %; Hematocrit 38.7 % (37.0-47.0); Hemoglobin 12.2 g/dL (11.5-15.3); Lymphocytes # 0.8 10^3/uL (0.8-4.8); Lymphocytes % 7.9 %; Mean Corpuscular HGB Conc 31.5 g/dL (30.0-36.0); Mean Corpuscular Hemoglobin 28.8 pg (28.0-34.0); Mean Corpuscular Volume 91.3 fl (81-99); Mean Platelet Volume 12.2 fL (7.4-10.4); Monocytes # 0.7 10^3/uL (0.2-0.9); Monocytes % 6.7 %; Neutrophils # 8.48 10^3/uL (1.8-7.7); Neutrophils % 80.4 %; Nucleated Red Blood Cells % 0 %; Platelet Count 240 10^3/cmm (130-400); Red Blood Count 4.24 10^6/uL (4.1-5.3); Red Cell Distribution Width 13.9 % (12.1-15.1); White Blood Count 10.5 10^3/uL (4.0-10.0)
--- NOTE | 2021-09-13 08:43 | PC.CHAP ---
Pastoral Care Encounter/Spiritual Assessment Type of Contact [] Declined branch library clerk visit [] Patient/Family/Request visit [] Outpatient visit [] Follow-up visit [] Physician referral [] Code/Alert [x] Routine visit [] Staff referral [] Actively dying [] Patient sleeping [] Family support [] [] Out of room [] Palliative care [] [] Receiving care in room [] Pre-surgical visit [] Trauma [] Long length of stay [] ICU visit [] Other:gone to rest home Relational/Emotional Strength [] Patient feels connected with others/family/visitors/staff [] Distress [] Loneliness/isolation [] Abandonment Spirituality of Patient [] Person of Alina [] Attends Oriental Orthodox of their Alina [] Believes in Prayer [] Reads Bible or Gnosticist materials [] There are Spiritual issues to be addressed Straight Ruling Machine Operator Interventions [] Prayer [] Active listening [] Non-anxious presence [] Spiritual/emotional support [] Crisis/trauma care [] Spiritual counseling [] Bereavement support [] Provided bereavement packet [] Provided Bible/devotional materials [] Provided toy/stuffed animal, coloring book to patient or family member [] Provided Communion [] Anointing/[place] [] Salvation [] Completed spiritual assessment [] Other: Impact on Illness or Injury [] Angry [] Fearful [] Anxious [] Often cries [] Exhaustion [] Unable to work [] Unable to attend zoroastrian [] Unable to walk/stand [] Unable to read [] Unable to drive [] Unable to eat/drink [] Unable to sleep [] Unable to be with family [] Patient intubated [] Other: Summary Time spent with patient
[2021-09-13] MEDS: sodium chloride 0.45% 1,000 ML 100 ML IV ×2 (09:16→16:49)
[2021-09-13 11:15] LABS: Glucose Point of Care 231 mg/dL (70-110)
[2021-09-13] MEDS: insulin lispro 100 unit/1 mL SUBCUT (11:29)
--- NOTE | 2021-09-13 11:57 | P.PN_ITS ---
Subjective Subjective: Interval history: This morning patient is awake and alert clinically dehydrated She is back to her baseline Nonfocal neuro exam Saturating well on 3 L nasal cannula Vitals/I&O/Wt Last Vital Signs Temp 98.5 F 09/13/21 11:29 Pulse 88 09/13/21 11:29 Resp 18 09/13/21 11:29 BP 146/60 09/13/21 11:29 Pulse Ox 94 09/13/21 11:29 09/12/21 09/13/21 09/13/21 22:59 06:59 14:59 Intake Total 150 / 150 Balance 150 / 150 Weight last 48 hrs Weight 90.718 kg Physical Exam Narrative: EXAM NARRATIVE: Patient is awake and alert GCS 15 Nonfocal neuro exam Clinically dehydrated Awake alert 20x3 GCS 15 EOMI, PERRLA Abdomen soft No antibiotic rhonchi or crackles On3 L nasal cannula Sacral area pressure ulcer present on admission Data : 09/13/21 06:05 09/13/21 06:05 Micro: Microbiology 09/12/21 15:20 Urine Culture - Preliminary Urine,Clean Catch Yeast species 09/12/21 17:20 Blood Culture - Preliminary Blood SPECIMEN COLLECTED 09/12/21 15:20 Blood Culture - Preliminary Blood SPECIMEN COLLECTED A&P Assessment and plan (1) Hypertension: Status: Acute (2) UTI (urinary tract infection): Status: Acute (3) Acute metabolic encephalopathy: Status: Acute (4) History of left hip hemiarthroplasty: Status: Acute (5) COVID: Status: Acute (6) Type 2 diabetes mellitus: Status: Acute Additional A&P Information Metabolic encephalopathy Related to UTI and dehydration I will keep her on half-normal saline, if her corrected sodium for hyper glycemia she is at least 2 to 3 L water deficit There is plan to transfer her to [facility], her grandson has arranged and reported to our corporate planner This will happen on Monday 8 AM Patient seems to back to her baseline Encephalopathy resolved Continue UTI and yeast infection management Afebrile Doing well on 3 L nasal cannula Need to quarantine for at least next 2 weeks, she was +1/16 Serum ketones positive secondary to dehydration and malnourishment Full code Consistent carb diet continue high-dose sliding scale and Lantus Pressure ulcer on sacral area nursing care, wound care, Attestations Medical Necessity Statement*: Discharge on Monday Time Spent in Patient Care: 16 - 35 minutes Coding Level of Care Code Acute Creel Hand for Chg Fwd Diagnoses Hypertension I10 UTI (urinary tract infection) N39.0 Acute metabolic encephalopathy G93.41 History of left hip hemiarthroplasty Z96.642 COVID U07.1 Type 2 diabetes mellitus E11.9
[2021-09-13 12:30] LABS: Glucose Point of Care 224 mg/dL (70-110)
[2021-09-13 16:06] LABS: Glucose Point of Care 119 mg/dL (70-110)
[2021-09-13] MEDS: insulin glargine 100 units/1 mL 20 UNIT SUBCUT (16:49)
[2021-09-13] MEDS: acetaminophen 325 mg Tablet 650 MG PO (16:50)
[2021-09-13] MEDS: enoxaparin 40 mg/0.4 mL Syringe SUBCUT (21:07)
[2021-09-13] MEDS: cefTRIAXone 1,000 MG in sodium chloride 0.9% (plus) 50 ML 100 MG IV (21:07)
[2021-09-13] MEDS: fluconazole premix 200 MG/100 ML PREMIX 100 MG IV (21:49)
[2021-09-13 22:08] LABS: Glucose Point of Care 110 mg/dL (70-110)
[2021-09-14] VITALS (13 sets, daily range): BP systolic 147–165; BP diastolic 69–93; PULSE 81–93; RESP 14–18; TEMP 36.3–37.2; O2SAT 93–99
[2021-09-14] MEDS: sodium chloride 0.45% 1,000 ML 100 ML IV (02:29)
[2021-09-14] MEDS: albuterol 8 gm MDI 1 PUFF INHALATION ×3 (03:07→22:00)
--- NOTE | 2021-09-14 05:31 | P.PN_ITS ---
Subjective Subjective: Interval history: No overnight events, low-grade fever noted, hypertension Vitals/I&O/Wt Last Vital Signs Temp 98.4 F 09/14/21 05:27 Pulse 89 09/14/21 05:27 Resp 15 09/14/21 05:27 BP 165/69 09/14/21 05:27 Pulse Ox 99 09/14/21 05:27 09/13/21 09/13/21 09/14/21 14:59 22:59 06:59 Intake Total 960 / 960 845 / 1805 1066.667 / 2871.667 Output Total 1100 / 1100 Balance 960 / 960 -255 / 705 1066.667 / 1771.667 Weight last 48 hrs Weight 90.435 kg Weight 90.718 kg Physical Exam Narrative: EXAM NARRATIVE: elderly female Signs of dehydration improving No new neurological deficits Abdomen soft Saturating well on 2 L nasal cannula No acute respite distress No signs of edema EOMI, PERRLA Data : 09/15/21 05:21 09/15/21 05:21 Micro: Microbiology 09/12/21 17:20 Blood Culture - Preliminary Blood NEGATIVE TO DATE 09/12/21 15:20 Blood Culture - Preliminary Blood NEGATIVE TO DATE 09/12/21 15:20 Urine Culture - Preliminary Urine,Clean Catch Yeast species A&P Assessment and plan (1) Hypothyroidism: Status: Acute (2) Hypertension: Status: Acute (3) UTI (urinary tract infection): Status: Acute (4) Acute metabolic encephalopathy: Status: Acute (5) History of left hip hemiarthroplasty: Status: Acute (6) COVID: Status: Acute (7) Type 2 diabetes mellitus: Status: Acute Plan Urine culture showing yeast species Continue antifungals She will be discharged tomorrow morning, grandson has arranged transportation [place] group [place] Hypernatremia with 2 to 3 L water deficit, improving DVT prophylaxis Lovenox Hyperglycemia, related to type 2 diabetes for now I will keep her on Lantus 20 units and sliding scale Optimize dose of lisinopril, will increase to 20 mg May repeat Ritalin today Attestations Medical Necessity Statement*: Plan is to discharge patient tomorrow Coding Level of Care Code Established Pt Acute Sales Development Representative for Chg Fwd Patient Type Established Medical Decision Making Straight Forward Diagnoses Hypothyroidism E03.9 Hypertension I10 UTI (urinary tract infection) N39.0 Acute metabolic encephalopathy G93.41 History of left hip hemiarthroplasty Z96.642 COVID U07.1 Type 2 diabetes mellitus E11.9 Time Spent (min) 15
[2021-09-14] MEDS: levothyroxine 25 mcg Tablet PO (05:53)
[2021-09-14 06:18] LABS: Basophils % 0.1 %; Eosinophils % 0.3 %; Hematocrit 35.3 % (37.0-47.0); Hemoglobin 10.8 g/dL (11.5-15.3); Lymphocytes # 0.7 10^3/uL (0.8-4.8); Mean Corpuscular HGB Conc 30.6 g/dL (30.0-36.0); Mean Corpuscular Hemoglobin 28.3 pg (28.0-34.0); Mean Corpuscular Volume 92.7 fl (81-99); Mean Platelet Volume 11.9 fL (7.4-10.4); Monocytes # 0.4 10^3/uL (0.2-0.9); Monocytes % 5.6 %; Neutrophils # 5.92 10^3/uL (1.8-7.7); Neutrophils % 80.6 %; Nucleated Red Blood Cells % 0 %; Platelet Count 208 10^3/cmm (130-400); Red Blood Count 3.81 10^6/uL (4.1-5.3); White Blood Count 7.3 10^3/uL (4.0-10.0)
[2021-09-14 06:36] LABS: Anion Gap 13.5 (5-19); Blood Urea Nitrogen 19 mg/dL (8-23); Calcium 7.3 mg/dL (8.5-10.5); Carbon Dioxide 26 mmol/L (22-29); Chloride 111 mmol/L (98-107); Glucose 80 mg/dL (65-115); Osmolality Calculated 305 mOsm/kg (285-295); Potassium 3.5 mmol/L (3.5-5.1); Sodium 147 mmol/L (136-145)
[2021-09-14 07:10] LABS: Glucose Point of Care 110 mg/dL (70-110)
[2021-09-14] MEDS: thiamine 100 mg Tablet PO (08:48)
[2021-09-14] MEDS: lisinopril 10 mg Tablet PO (08:48)
[2021-09-14] MEDS: sertraline 100 mg Tablet PO (08:48)
[2021-09-14] MEDS: cholecalciferol (vitamin D3) 5,000 unit Tablet 5000 UNIT PO (08:49)
[2021-09-14] MEDS: dextrose 5%-sod chloride 0.45% 1,000 ML 125 ML IV ×2 (10:23→17:04)
[2021-09-14 11:27] LABS: Glucose Point of Care 113 mg/dL (70-110)
[2021-09-14 13:51] LABS: Adenovirus Not Detected (NOT DETECT); Chlamydia Pneumoniae Not Detected (NOT DETECT); Coronavirus 229E,HKU1,NL63,OC4 Not Detected (NOT DETECT); Human Metapneumovirus Not Detected (NOT DETECT); Human Rhinovirus/Enterovirus Not Detected (NOT DETECT); Influenza A Not Detected (NOT DETECT); Influenza A H1 Not Detected (NOT DETECT); Influenza A H1-2009 Not Detected (NOT DETECT); Influenza A H3 Not Detected (NOT DETECT); Influenza B Not Detected (NOT DETECT); Mycoplasma Pneumoniae Not Detected (NOT DETECT); Parainfluenza Virus Type 1 Not Detected (NOT DETECT); Parainfluenza Virus Type 2 Not Detected (NOT DETECT); Parainfluenza Virus Type 3 Not Detected (NOT DETECT); Parainfluenza Virus Type 4 Not Detected (NOT DETECT); Respiratory Syncytial Virus A Not Detected (NOT DETECT); Respiratory Syncytial Virus B Not Detected (NOT DETECT); SARS-COV-2 Detected (NOT DETECT)
[2021-09-14 17:04] LABS: Glucose Point of Care 187 mg/dL (70-110)
[2021-09-14] MEDS: insulin lispro 100 unit/1 mL SUBCUT (17:05)
[2021-09-14] MEDS: insulin glargine 100 units/1 mL 20 UNIT SUBCUT (17:05)
[2021-09-14] MEDS: fluconazole 100 mg Tablet 200 MG PO (21:48)
[2021-09-14] MEDS: cefTRIAXone 1,000 MG in sodium chloride 0.9% (plus) 50 ML 100 MG IV (21:49)
[2021-09-14] MEDS: enoxaparin 40 mg/0.4 mL Syringe SUBCUT (21:49)
[2021-09-15] VITALS: BP 157/81; PULSE 92; RESP 18; TEMP 36.8; O2SAT 96
[2021-09-15 00:42] LABS: Glucose Point of Care 139 mg/dL (70-110)
[2021-09-15 00:42] LABS: Glucose Point of Care 135 mg/dL (70-110)
[2021-09-15] MEDS: dextrose 5%-sod chloride 0.45% 1,000 ML 125 ML IV (01:12)
[2021-09-15 04:00] VITALS: BP 149/76; PULSE 91; RESP 16; TEMP 36.6; O2SAT 96
[2021-09-15] MEDS: levothyroxine 25 mcg Tablet PO (05:39)
[2021-09-15 05:49] LABS: Basophils % 0.2 %; Eosinophils % 0.2 %; Hematocrit 33.5 % (37.0-47.0); Hemoglobin 10.5 g/dL (11.5-15.3); Lymphocytes # 0.7 10^3/uL (0.8-4.8); Lymphocytes % 11.1 %; Mean Corpuscular HGB Conc 31.3 g/dL (30.0-36.0); Mean Corpuscular Hemoglobin 28.8 pg (28.0-34.0); Mean Platelet Volume 12.2 fL (7.4-10.4); Monocytes # 0.3 10^3/uL (0.2-0.9); Monocytes % 5.7 %; Neutrophils # 4.69 10^3/uL (1.8-7.7); Nucleated Red Blood Cells % 0 %; Platelet Count 178 10^3/cmm (130-400); Red Blood Count 3.64 10^6/uL (4.1-5.3); Red Cell Distribution Width 13.8 % (12.1-15.1)
[2021-09-15 06:10] LABS: Anion Gap 13.2 (5-19); Blood Urea Nitrogen 13 mg/dL (8-23); Carbon Dioxide 25 mmol/L (22-29); Chloride 108 mmol/L (98-107); Glucose 218 mg/dL (65-115); Osmolality Calculated 303 mOsm/kg (285-295); Potassium 3.2 mmol/L (3.5-5.1); Sodium 143 mmol/L (136-145)
--- NOTE | 2021-09-15 07:01 | P.DS_ITS ---
Discharge Providers Date of Admission: 09/13/21 03:15 Date of Discharge: September 15, 2021 Attending Provider at Admission: Alfonso Lara MD Attending Provider at Discharge: Madeline Trammell MD Primary Care Provider: Karen Hughes MD Diagnoses at Discharge Discharge Diagnosis (1) Hypothyroidism: Status: Acute (2) Hypertension: Status: Acute (3) UTI (urinary tract infection): Status: Acute (4) Acute metabolic encephalopathy: Status: Acute (5) History of left hip hemiarthroplasty: Status: Acute Permanent problem details: Date of procedure: September 03, 2021 Procedure Done: Left bipolar hip arthroplasty Implants: The Terranova hip system with the following implants: The Accolade II 127 degree neck angle size 4 femoral stem with a V40 LFIT femoral head size 28 mm x +4 mm and a universal head component bipolar size 48 mm outer diameter by 28 mm inner diameter. (6) COVID: Status: Acute (7) Type 2 diabetes mellitus: Status: Acute Reason for Visit Reason for Visit: LETHARGY Hospital Course Hospital Course History of Present Illness by Dr. Lara Cecelia Andrew is a 81 year old female with past medical history of hypertension, diabetes, hypothyroidism, recent COVID-19 infection, recent? Left bipolar hip arthroplasty, was brought in from the group home for altered mental status, she was discharged to the group home on 08/28 after? Left bipolar hip arthroplasty , since discharge to group home has noticed slow decline in her mentation, but today she has significant decline in her mental status. History taking is not possible from the patient as he is altered, making incoherent sounds. History taking has been done from ER chart review. Upon arrival in the ER she was worked up for above-mentioned complaints Pertinent imaging studies: CT head without contrast: No acute intracranial pathology CT chest abdomen and pelvis: Bilateral, predominantly peripheral, patches of ground-glass interstitial lung disease opacification consistent with active interstitial pneumonitis.? No pulmonary embolism. CT abdomen and pelvis: Showed fecal impaction, distended bladder , no acute intra abdominal or pelvic pathology. Pertinent labs: EKG: Sinus rhythm WBC 9.8, H&H:12/40, plt : 248 , serum sodium 143 ,? serum potassium 4.5 , BUN serum creatinine 40/1 , random blood glucose:334, troponin trend without significant delta , proBNP 456, Urinalysis: Appearance cloudy, urine WBC 10-15, urine yeast 4+ , urine RBC 5-10, urine leukocyte esterase 2+ IN The ER after Beltran catheter replacement patient voided 2 L urine. Patient also received 2 L normal saline bolus Hospital course Patient was admitted for management of encephalopathy related to COVID-19 and UTI. Her encephalopathy resolved by the time I saw her she was able to tell me her name, date of and name of her grandson. She was extremely toxic and fatigue which is related to COVID-19 myalgias. She was given Ritalin as well which improved her mood and energy to some extent. Her grandson has arranged medic transport. She will be discharged on 09/15, for her UTI she was given fluconazole and Levaquin. She was requiring oxygen since her COVID-19 diagnosis proximal requirement was between 2-3L at rest. Nonfocal neuro exam no signs of acute CVA. Urine culture grew Joselyn albicans Blood cultures Chest abdomen pelvis CT scan showed fecal impaction, she had 1 bowel movement on 09/14 Physical Exam Narrative: EXAM NARRATIVE: elderly female Signs of dehydration improving No new neurological deficits Abdomen soft Saturating well on 2 L nasal cannula No acute respite distress No signs of edema EOMI, PERRLA Discharge Data Studies Completed and Pending Completed Studies During Hospitalization Category Date Time Status CT angio chest w abd pel w con Urgent Cat Scan 09/12/21 16:[address] head wo con* [id number] Urgent Cat Scan 09/12/21 15:31 Completed XR chest 1V portable [id number] Urgent Exams 09/12/21 15:31 Completed Pending at discharge Category Date Time Status Blood Culture Stat Lab 09/12/21 17:20 Results Urine Culture Stat Lab 09/12/21 15:20 Results Radiology Impressions Chest X-Ray 09/12/21 15:31 IMPRESSION: Ill-defined opacities along the left mid and lower lung suspicious for infiltrates, most likely COVID pneumonia. Head CT 09/12/21 15:31 IMPRESSION: There are senescent changes of the brain as described above. No evidence for large acute ischemic infarction or acute intracranial injury. Chest/Abdomen/Pelvis CT 09/12/21 16:14 IMPRESSION: 1. No grossly visible evidence of pulmonary embolism/pulmonary arterial thrombus. 2. Bilateral, predominantly peripheral, patches of ground-glass interstitial lung disease opacification consistent with active interstitial pneumonitis. Overall constellation of findings would be consistent with Covid-19 pneumonitis. IMPRESSION: 1. Fecal impaction. 2. Liquid stool throughout the remainder of the colonic tract. 3. Distended urinary bladder. Laboratory Results WBC 6.0 10^3/uL (4.0-10.0) 09/15/21 05:21 RBC 3.64 10^6/uL (4.1-5.3) L 09/15/21 05:21 Hgb 10.5 g/dL (11.5-15.3) L 09/15/21 05:21 Hct 33.5 % (37.0-47.0) L 09/15/21 05:21 MCV 92.0 fl (81-99) 09/15/21 05:21 MCH 28.8 pg (28.0-34.0) 09/15/21 05:21 MCHC 31.3 g/dL (30.0-36.0) 09/15/21 05:21 RDW 13.8 % (12.1-15.1) 09/15/21 05:21 Plt Count 178 10^3/cmm (130-400) 09/15/21 05:21 MPV 12.2 fL (7.4-10.4) H 09/15/21 05:21 Neut % (Auto) 78.0 % 09/15/21 05:21 Lymph % (Auto) 11.1 % 09/15/21 05:21 Taylor % (Auto) 5.7 % 09/15/21 05:21 Eos % (Auto) 0.2 % 09/15/21 05:21 Baso % (Auto) 0.2 % 09/15/21 05:21 Neut # (Auto) 4.69 10^3/uL (1.8-7.7) 09/15/21 05:21 Lymph # (Auto) 0.7 10^3/uL (0.8-4.8) L 09/15/21 05:21 Taylor # (Auto) 0.3 10^3/uL (0.2-0.9) 09/15/21 05:21 Eos # (Auto) 0.0 10^3/uL (0.0-0.8) 09/15/21 05:21 Baso # (Auto) 0.0 10^3/uL (0.0-0.1) 09/15/21 05:21 Nucleated RBC % (auto) 0 % 09/15/21 05:21 Nucleated RBCs # 0.0 /100WBC 09/15/21 05:21 Specimen Type Arterial 09/12/21 16:20 Sample Site Radial, right 09/12/21 16:20 ABG pH 7.39 (7.35-7.45) 09/12/21 16:20 ABG pCO2 43.3 mmHg (35-45) 09/12/21 16:20 ABG pO2 95.7 mmHg (80.0-100.0) 09/12/21 16:20 ABG HCO3 26.3 mmol/L (22-26) H 09/12/21 16:20 ABG Base Excess 1.0 mmol/L (-2.0-2.0) 09/12/21 16:20 Masoud Test Pos 09/12/21 16:20 Hematocrit 37.8 % (37-47) 09/12/21 16:20 O2 Delivery Device Nc 09/12/21 16:20 O2 Liters/Min 2.5 % 09/12/21 16:20 Medical Resident ID Tung 09/12/21 16:20 Sodium 143 mmol/L (136-145) 09/15/21 05:21 Potassium 3.2 mmol/L (3.5-5.1) L 09/15/21 05:21 Chloride 108 mmol/L (98-107) H 09/15/21 05:21 Carbon Dioxide 25 mmol/L (22-29) 09/15/21 05:21 Anion Gap 13.2 (5-19) 09/15/21 05:21 BUN 13 mg/dL (8-23) 09/15/21 05:21 Creatinine 0.5 mg/dL (0.5-0.9) 09/15/21 05:21 GFR Calculation Not Reportable 09/15/21 05:21 Glucose 218 mg/dL (65-115) H 09/15/21 05:21 POC Glucose 139 mg/dL (70-110) H 09/14/21 20:40 Calculated Osmolality 303 mOsm/kg (285-295) H 09/15/21 05:21 Calcium 7.0 mg/dL (8.5-10.5) L 09/15/21 05:21 Magnesium 2.4 mg/dL (1.7-2.3) H 09/12/21 15:20 Total Bilirubin 0.3 mg/dL (0.15-1.2) 09/12/21 15:20 AST 23 U/L (0-32) 09/12/21 15:20 ALT 11 U/L (0-33) 09/12/21 15:20 Alkaline Phosphatase 75 IU/L (35-105) 09/12/21 15:20 Troponin T Baseline 19 ng/L (0-10) H 09/12/21 15:20 Troponin T 120 Minute 16.49 ng/L (0-10) H 09/12/21 17:20 Delta Troponin T -2.51 ABS# (0-10) L 09/12/21 17:20 Troponin T Hi Sens 6Hr 17.64 ng/L (0-10) H 09/12/21 21:20 Troponin T Hi Sens 6Hr Delta -1.36 ng/L (0-12) L 09/12/21 21:20 C-Reactive Protein 105.4 mg/L (0.0-4.9) H 09/12/21 15:20 NT-Pro-B Natriuret Pep 456 pg/mL (0-450) H 09/12/21 15:20 Total Protein 5.3 g/dL (6.6-8.7) L 09/12/21 15:20 Albumin 3.2 g/dL (3.5-5.2) L 09/12/21 15:20 Globulin 2.1 g/dL (1.3-4.6) 09/12/21 15:20 Procalcitonin 0.20 ng/mL (0-0.5) 09/12/21 15:20 TSH 1.12 uIU/mL (0.27-4.20) 09/12/21 15:20 Urine Color Dark yellow (Yellow) 09/12/21 15:20 Urine Appearance Cloudy (CLEAR) 09/12/21 15:20 Urine pH 5 (5-7) 09/12/21 15:20 Ur Specific [place] 1.020 (1.005-1.030) 09/12/21 15:20 Urine Protein Trace (Negative) 09/12/21 15:20 Urine Glucose (UA) Norm (Normal) 09/12/21 15:20 Urine Ketones 1+ (Negative) H 09/12/21 15:20 Urine Blood 3+ (Negative) H 09/12/21 15:20 Urine Nitrate Negative (Negative) 09/12/21 15:20 Urine Bilirubin Neg (Negative) 09/12/21 15:20 Urine Urobilinogen Norm mg/dL (Negative) 09/12/21 15:20 Ur Leukocyte Esterase 2+ (Negative) H 09/12/21 15:20 Urine RBC 5-10 /hpf (0-2) H 09/12/21 15:20 Urine WBC 10-15 /hpf (0-5) H 09/12/21 15:20 Ur Squamous Epith Cells None /hpf (0-5) 09/12/21 15:20 Amorphous Sediment Not Reportable 09/12/21 15:20 Urine Bacteria Trace /hpf (NONE) 09/12/21 15:20 Urine Yeast 4+ /hpf H 09/12/21 15:20 Serum Ketones Positive (Negative) H 09/12/21 15:20 Coronavirus 229E (PCR) Not detected (NOT DETECT) 09/14/21 11:45 SARS-CoV-2 (PCR) Detected (NOT DETECT) A 09/14/21 11:45 Vitals Last Vital Signs Temp 97.8 F 09/15/21 04:00 Pulse 91 09/15/21 04:00 Resp 16 09/15/21 04:00 BP 149/76 09/15/21 04:00 Pulse Ox 96 09/15/21 04:00 Discharge Plan Discharge Patient Disposition: Home Condition: Stable Prescriptions: New fluconazole 100 mg Tablet 200 mg PO Q24H Qty: 5 0RF levofloxacin 750 mg tablet 750 mg PO DAILY 4 Days Qty: 4 0RF Continued vitamin E 1,000 unit Capsule 2,000 unit PO DAILY 0RF cod liver oil Capsule 2 cap PO DAILY 0RF thiamine HCl (vitamin B1) [Vitamin B-1] 100 mg Tablet 100 mg PO DAILY 0RF coenzyme Q10 [CoQ-10] 30 mg Capsule 30 mg PO DAILY 0RF cholecalciferol (vitamin D3) [Vitamin D3] 5,000 unit Tablet 5,000 unit PO EVERY OTHER DAY 0RF sertraline 100 mg tablet 100 mg PO DAILY 0RF Eliquis 2.5 mg tablet 2.5 mg PO BID@08,20 0RF Calcium Magnesium Potassium Ta 1 tab PO DAILY 0RF levothyroxine [Euthyrox] 25 mcg tablet 25 mcg PO QAM 0RF lisinopril 10 mg tablet 10 mg PO DAILY 0RF Lantus Solostar U-100 Insulin 100 unit/mL (3 mL) insulin pen 15 unit SUBCUT QPM Qty: 15 3RF insulin lispro [Humalog KwikPen Insulin] 100 unit/mL insulin pen See Rx Instructions .ROUTE .COMPLEX Qty: 15 3RF Rx Instructions: Low-dose sliding scale metformin 1,000 mg tablet 1,000 mg PO DAILY Qty: 30 3RF tramadol 100 mg tablet 50 mg PO Q4H PRN (Reason: pain) Qty: 20 0RF sennosides-docusate sodium [Senna-S] 8.6-50 mg tablet 1 tab-cap PO DAILY Qty: 60 0RF albuterol sulfate 90 mcg/actuation HFA aerosol inhaler 2 inh inhalation Q6H Qty: 8.5 1RF methylphenidate HCl [Ritalin] 5 mg tablet 5 mg PO DAILY Qty: 3 0RF Rx Instructions: X 4 DAYS Discharge Orders: Discharge Order (Routine); Ordered 09/15/21 Ordered By: Madeline Trammell Discharge Diet: Soft Mechanical Discharge Activity: Increase activity as tolerated Patient Instructions: Fluconazole (By mouth), Levofloxacin (By mouth), Urinary Tract Infection in Women (GEN), Opioid Safety Discharge Attestations Time Spent in Discharge Care*: other Quality Metrics Clinical Quality Measures [ No reported AMI, CVA or VTE this stay] Coding Level of Care Code Acute Chg FW DC note Diagnoses Hypothyroidism E03.9 Hypertension I10 UTI (urinary tract infection) N39.0 Acute metabolic encephalopathy G93.41 History of left hip hemiarthroplasty Z96.642 COVID U07.1 Type 2 diabetes mellitus E11.9
[2021-09-15 07:32] LABS: Glucose Point of Care 240 mg/dL (70-110)
[2021-09-15 08:51] VITALS: BP 149/76; PULSE 91; RESP 16; TEMP 36.6; O2SAT 96
--- NOTE | 2021-09-15 08:52 | PC.NURSE ---
Discharge: Patient's grandson and transportation company here to get patient. D/c paperwork given.
[2021-09-15 08:53] VITALS: BP 149/76; PULSE 91; RESP 16; TEMP 36.6; O2SAT 96
== END 2021-09-15 08:55 | disposition skilled nursing facility (03) | DRG 757 ==
LOC: ER 19:30 → ER IP 09-13 03:15 → MEDSURG 09-13 06:53
PROVIDERS: Admitting Provider Internal Medicine; Emergency Provider Emergency Medicine; PCP Family Medicine; Visit Provider Internal Medicine
DX: B37.49 Other urogenital candidiasis (principal); G93.41 Metabolic encephalopathy; U07.1 COVID-19; J12.82 Pneumonia due to coronavirus disease 2019; Z96.642 Presence of left artificial hip joint; E03.9 Hypothyroidism, unspecified; I10 Essential (primary) hypertension; K56.41 Fecal impaction; E78.5 Hyperlipidemia, unspecified; E86.0 Dehydration; E11.65 Type 2 diabetes mellitus with hyperglycemia
CPT/HCPCS: 36415; 36416; 36600; 70450; 71045; 71275; 74177; 80048; 80053; 81001; 82009; 82803; 82962; 83735; 83880; 84145; 84443; 84484; 85025; 86140; 87040; 87086; 87106; 87635; 92523; 92610; 93005; 94640; 96365; 96367; 96372; 99285; J0696; J1450; J1650; J1815 ×2; J3535; J7030; J7799; Q9967